=== PATIENT | female | born 1955 | race Caucasian/White ===

== ENCOUNTER 2019-07-31 13:43 | Outpatient (CLI) | payer MEDICARE, BC ==
[2019-07-31 14:03] LABS: BASOPHILS # (AUTO) 0.1 10^3/uL (0.0-0.1); BASOPHILS % (AUTO) 0.6 %; EOSINOPHILS # (AUTO) 0.5 10^3/uL (0.0-0.7); EOSINOPHILS % (AUTO) 5.9 %; HGB - HEMOGLOBIN 13.4 g/dL (12.0-16.0); LYMPHOCYTES # (AUTO) 2.9 10^3/uL (1.5-3.5); LYMPHOCYTES % (AUTO) 36.4 %; MEAN CORPUSCULAR HEMOGLOBIN 32.1 pg (27.0-31.0); MEAN CORPUSCULAR HGB CONC 33.8 g/dL (32.0-36.0); MEAN CORPUSCULAR VOLUME 94.7 fL (81.0-99.0); MEAN PLATELET VOLUME 9.4 fL (7.9-10.8); MONOCYTES # (AUTO) 0.4 10^3/uL (0.0-1.0); MONOCYTES % (AUTO) 4.6 %; NEUTROPHILS # (AUTO) 4.2 10^3/uL (1.5-6.6); NEUTROPHILS % (AUTO) 52.1 %; PLT - PLATELET COUNT 279 10^3/uL (130-450); RED BLOOD COUNT 4.18 10^6/uL (4.20-5.40); RED CELL DISTRIBUTION WIDTH 13.6 % (12.0-15.0)
[2019-07-31 14:17] LABS: ALBUMIN 4.6 g/dL (3.2-5.5); ALBUMIN/GLOBULIN RATIO 1.6 (1.0-2.2); ALKALINE PHOSPHATASE 58 IU/L (42-121); ALT ALANINE AMINOTRANSFERASE 25 IU/L (10-60); AST ASPARTATE AMINOTRANSFERASE 24 IU/L (10-42); BILIRUBIN,TOTAL 0.7 mg/dL (0.2-1.0); BUN - BLOOD UREA NITROGEN 12 mg/dL (6-20); CALCIUM 9.2 mg/dL (8.5-10.3); CARBON DIOXIDE - CO2 26 mmol/L (21-32); CHLORIDE 104 mmol/L (101-111); CHOL/HDL RATIO 2.7 (<4.4); CHOLESTEROL 192 mg/dL; CREATININE 0.6 mg/dL (0.4-1.0); GFR - MDRD 100 (>89); GLUCOSE 92 mg/dL (70-100); HDL CHOLESTEROL 72 mg/dL; LDL CHOLESTEROL,CALCULATED 108 mg/dL; LDL/HDL RATIO 1.5 (<4.4); SODIUM 141 mmol/L (135-145); TOTAL PROTEIN 7.5 g/dL (6.7-8.2); VLDL CHOLESTEROL 12 mg/dL
[2019-07-31 14:44] LABS: HB2 TOTAL 14.1 g/dL; HEMOGLOBIN A1C 0.58 g/dL; HEMOGLOBIN A1C % 5.9 % (4.6-6.2)
== END 2019-07-31 13:44 | disposition home or self-care (01) ==
LOC: LAB 13:43
PROVIDERS: ATTEND Nurse Practitioner
DX: M85.80 Other specified disorders of bone density and structure, unspecified site (principal); I10 Essential (primary) hypertension; R73.01 Impaired fasting glucose; E03.9 Hypothyroidism, unspecified; Z13.220 Encounter for screening for lipoid disorders; Z79.899 Other long term (current) drug therapy
CPT/HCPCS: 36415; 80053; 80061; 82306; 83036; 83721; 84443; 85025

== ENCOUNTER 2019-07-31 13:58 | Outpatient (CLI) | payer MEDICARE, BC ==
--- NOTE | 2019-08-07 11:30 | DEXA Report ---
Reason: OSTEOPENIA Procedure Date: 07/31/2019 Accession Number: [id number] / [id number] Procedure: DEX - Dexa Spine and/or Hip CPT Code: Final Report FULL RESULT: EXAM: Dexa Spine and/or Hip DATE: 07/31/2019 3:47 PM CLINICAL HISTORY: OSTEOPENIA TECHNIQUE: Dual energy x-ray absorptiometry (DXA) was performed on a [employer] System. Regions measured are the AP Spine, femoral neck, and if needed forearm. COMPARISON: None. In accordance with the International Society for Clinical Densitometry (ISCD) guidelines, data from previous exams may be reanalyzed using current recommendations and techniques. This is done to allow a more accurate basis for comparison with the current study. FINDINGS: The data for the lumbar spine is as follows: BMD (g/cm/cm) T-SCORE Z-SCORE REGION L1 1.003 -1.1 0.6 L2 1.129 -0.6 1.0 L3 1.236 0.3 1.9 L4 1.242 0.4 2.0 TOTAL 1.162 -0.1 1.5 NOTE: All evaluable vertebrae are used for classification The data for the hip is as follows: BMD (g/cm/cm) T-SCORE Z-SCORE REGION Neck 0.950 -0.6 0.9 TOTAL 0.877 -1.0 0.2 NOTE: The femoral neck or total proximal femur, whichever is lowest, is used for classification. IMPRESSION: THE WHO CLASSIFICATION BASED ON THE INTERNATIONAL REFERENCE STANDARD IS NORMAL. THE FRACTURE RISK IS NOT INCREASED. RECOMMENDATION: Patients with diagnosis of osteoporosis or osteopenia should have regular bone mineral density assessment. For those eligible for Medicare, routine testing is allowed once every 2 years. Testing frequency can be increased for patients who have rapidly progressing disease or for those who are receiving medical therapy to restore bone mass. COMMENT: World Health Organization (WHO) definitions for osteoporosis and osteopenia: NORMAL BMD: T-score at -1.0 or higher, fracture risk is low OSTEOPENIA BMD: T-score between -1.0 and -2.5, fracture risk is increased. OSTEOPOROSIS BMD: T-score at -2.5 or lower, fracture risk is high. National Osteoporosis Foundation recommends: 1. Obtain adequate dietary calcium (at least 1200 mg per day) and vitamin D (400-800 international units per day). 2. Participate, as appropriate, in regular weightbearing and muscle-strengthening exercise. 3. Avoid tobacco use and reduce alcohol and caffeine intake. 4. For more detailed information see the website at www.NOF.org.
== END 2019-07-31 13:59 | disposition home or self-care (01) ==
LOC: DI 13:58
PROVIDERS: ATTEND Nurse Practitioner
DX: M85.80 Other specified disorders of bone density and structure, unspecified site (principal); I10 Essential (primary) hypertension; E03.9 Hypothyroidism, unspecified; Z13.220 Encounter for screening for lipoid disorders; Z79.899 Other long term (current) drug therapy; R73.01 Impaired fasting glucose
CPT/HCPCS: 36415; 77080; 80053; 80061; 82306; 83036; 84443; 85025

== ENCOUNTER 2019-07-31 14:03 | Outpatient (CLI) | payer MEDICARE, BC ==
--- NOTE | 2019-08-07 17:00 | Mammography Report ---
Reason: SCREENING MAMMO Procedure Date: 07/31/2019 Accession Number: [id number] / [id number] Procedure: LINDSEY - Screening Mammo w/Yoandy CPT Code: Final Report FULL RESULT: EXAM: Screening Mammo w/Yoandy DATE: 07/31/2019 2:56 PM CLINICAL HISTORY: Screening encounter. Family history of breast cancer in the mother at the age of 50 and a sister at the age of 55. TECHNIQUE: (B) - Bilateral CC and MLO views were obtained. Left laterally exaggerated CC view is obtained. COMPARISON: None PARENCHYMAL PATTERN: (D) - The breast(s) demonstrate(s) heterogeneously dense fibroglandular parenchyma. FINDINGS: There are no suspicious masses, calcifications, or areas of distortion. IMPRESSION: Negative examination. BI-RADS category 1. RECOMMENDATION: (ANNUAL) - Recommend routine annual screening mammography. BI-RADS CATEGORY: (1) - Negative. STANDARD QUALIFYING STATEMENTS: 1. This examination was not reviewed with the aid of Computer-Aided Detection (CAD). 2. A negative or benign imaging report should not preclude biopsy if clinically suspicious findings are present. 3. Dense breasts may obscure an underlying neoplasm. 4. This examination was reviewed with the aid of 3D breast imaging (tomosynthesis).
== END 2019-07-31 14:04 | disposition home or self-care (01) ==
LOC: DI 14:03
PROVIDERS: ATTEND Nurse Practitioner
DX: Z12.31 Encounter for screening mammogram for malignant neoplasm of breast (principal); Z80.3 Family history of malignant neoplasm of breast
CPT/HCPCS: 77063; 77067

== ENCOUNTER 2019-11-02 19:04 | Emergency (ER) | payer MEDICARE, BC ==
[2019-11-02 19:39] LABS: BILIRUBIN,URINE NEGATIVE (NEGATIVE); CLARITY,URINE CLEAR (CLEAR); GLUCOSE, URINE (UA) NEGATIVE (NEGATIVE); KETONES,URINE (UA) NEGATIVE (NEGATIVE); LEUKOCYTE ESTERASE, URINE SMALL (NEGATIVE); NITRITE,URINE POSITIVE (NEGATIVE); OCCULT BLOOD,URINE NEGATIVE (NEGATIVE); PROTEIN,URINE NEGATIVE (NEGATIVE); UROBILINOGEN,URINE 0.2 (NORMAL) E.U./dL (NORMAL)
[2019-11-02 19:48] LABS: BACTERIA,URINE Many /HPF (None Seen); RBC,URINE None Seen /HPF (0-5); SQUAMOUS EPITHELIAL CELL,UR NONE SEEN (<= Few); WBC CLUMPS,URINE PRESENT
[2019-11-02] MEDS ORDERED: NITROFURANTOIN MACRO 100 MG CAPSULE PO STA (19:50)
[2019-11-02] MEDS ORDERED: PHENAZOPYRIDINE 100 MG TABLET PO STA (19:50)
--- NOTE | 2019-11-02 19:51 | ED Physician Documentation ---
History of Present Illness - Stated complaint Stated Complaint: FEM - Chief complaint Chief Complaint: UTI - History obtained from History obtained from: Patient - History of Present Illness Timing: How many days ago (3) Pain level max: 4 Pain level now: 3 - Additonal information Additional information: Patient with UTI symptoms. Dysuria and frequency. no hematuria. no fever. no abd pain. Review of Systems Constitutional: denies: Fever, Chills GI: denies: Vomiting, Diarrhea : reports: Dysuria, Frequency, Hesitancy Skin: denies: Rash Musculoskeletal: denies: Neck pain Neurologic: denies: Headache PD PAST MEDICAL HISTORY - Past Medical History Past Medical History: No - Present Medications Home Medications: Ambulatory Orders Medication Instructions Recorded Confirmed Nitrofurantoin Monohyd/M-Cryst 100 mg PO BID #10 capsule 11/02/19 [Macrobid 100 mg Capsule] - Allergies Allergies/Adverse Reactions: Allergies Allergy/AdvReac Type Severity Reaction Status Date / Time hydrochlorothiazide Allergy Anaphylaxis Verified 11/02/19 19:15 - Social History Does the pt smoke?: No Smoking Status: Never smoker Does the pt drink ETOH?: No Does the pt have substance abuse?: No - Immunizations Immunizations are current?: Yes PD ED PE NORMAL - Vitals Vital signs reviewed: Yes - General General: Alert and oriented X 3, No acute distress, Well developed/nourished - HEENT HEENT: Moist mucous membranes - Neck Neck: Supple, no meningeal sign - Abdomen Abdomen: Soft, Non tender, Non distended - Back Back: No CVA TTP - Derm Derm: Warm and dry - Neuro Neuro: Alert and oriented X 3 - Psych Psych: Normal mood, Normal affect Results - Vitals Vitals: Vital Signs - 24 hr 11/02/19 11/02/19 19:15 20:10 Temperature 36.6 C 36.7 C Heart Rate 74 75 Respiratory 16 18 Rate Blood Pressure 146/80 H 137/81 H O2 Saturation 99 99 Oxygen O2 Source Room air - Labs Labs: Laboratory Tests 11/02/19 19:31 Urine Color YELLOW Urine Clarity CLEAR Urine pH 6.0 Ur Specific [place] 1.015 Urine Protein NEGATIVE Urine Glucose (UA) NEGATIVE Urine Ketones NEGATIVE Urine Occult Blood NEGATIVE Urine Nitrite POSITIVE H Urine Bilirubin NEGATIVE Urine Urobilinogen 0.2 (NORMAL) Ur Leukocyte Esterase SMALL H Urine RBC None Seen Urine WBC >25 H Urine WBC Clumps PRESENT Ur Squamous Epith Cells NONE SEEN Urine Bacteria Many H Ur Microscopic Review INDICATED Urine Culture Comments INDICATED PD MEDICAL DECISION MAKING - ED course Complexity details: reviewed results, considered differential, d/w patient ED course: Patient with a UTI. Will place on antibiotics for home. She is well-appearing, nontoxic. Afebrile. No evidence of pyelonephritis. Patient counseled regardi ng signs and symptoms for which I believe and urgent re-evaluation would be necessary. Patient with good understanding of and agreement to plan and is comfortable going home at this time This document was made in part using voice recognition software. While efforts are made to proofread this document, sound alike and grammatical errors may occur. Departure - Departure Disposition: Home, Self Care Clinical Impression: Urinary tract infection Qualifiers: Urinary tract infection type: acute cystitis Hematuria presence: without hematuria Qualified Code(s): N30.00 - Acute cystitis without hematuria Condition: Good Instructions: ED UTI Cystitis Female Follow-Up: Samia De La O ARNP, SYSTEM DEVELOPMENT ENGINEER-C [Primary Care Provider] - Within 1 week Prescriptions: Nitrofurantoin Monohyd/M-Cryst [Macrobid 100 mg Capsule] 100 mg PO BID #10 capsule Comments: Take all antibiotics until gone. Return if you worsen. Discharge Date/Time: 11/02/19 20:11
[2019-11-02 20:11] VITALS: BP 137/81
== END 2019-11-02 20:11 | disposition home or self-care (01) ==
LOC: ED 19:04
DX: N30.00 Acute cystitis without hematuria (principal)
CPT/HCPCS: 81001; 87077; 87086; 87181; 99283; 99284; A9270; 81003

== ENCOUNTER 2019-11-12 13:05 | Outpatient (CLI) | payer MEDICARE, BC ==
[2019-11-12 18:02] LABS: BASOPHILS # (AUTO) 0.1 10^3/uL (0.0-0.1); BASOPHILS % (AUTO) 0.7 %; EOSINOPHILS % (AUTO) 0.1 %; HGB - HEMOGLOBIN 11.3 g/dL (12.0-16.0); LYMPHOCYTES # (AUTO) 2.7 10^3/uL (1.5-3.5); LYMPHOCYTES % (AUTO) 35.8 %; MEAN CORPUSCULAR HEMOGLOBIN 30.2 pg (27.0-31.0); MEAN CORPUSCULAR HGB CONC 31.8 g/dL (32.0-36.0); MEAN CORPUSCULAR VOLUME 94.9 fL (81.0-99.0); MEAN PLATELET VOLUME 9.6 fL (7.9-10.8); MONOCYTES # (AUTO) 0.4 10^3/uL (0.0-1.0); MONOCYTES % (AUTO) 5.4 %; NEUTROPHILS # (AUTO) 4.4 10^3/uL (1.5-6.6); NEUTROPHILS % (AUTO) 57.6 %; PLT - PLATELET COUNT 321 10^3/uL (130-450); RED BLOOD COUNT 3.74 10^6/uL (4.20-5.40); RED CELL DISTRIBUTION WIDTH 13.3 % (12.0-15.0); WHITE BLOOD COUNT 7.6 x10^3/uL (4.8-10.8)
[2019-11-12 18:18] LABS: ALBUMIN/GLOBULIN RATIO 1.5 (1.0-2.2); BILIRUBIN,TOTAL 0.6 mg/dL (0.2-1.0); CALCIUM 8.9 mg/dL (8.5-10.3); CREATININE 0.6 mg/dL (0.4-1.0); TOTAL PROTEIN 6.7 g/dL (6.7-8.2)
== END 2019-11-12 23:59 | disposition home or self-care (01) ==
LOC: LAB.WCP 13:05
PROVIDERS: ATTEND Nurse Practitioner
DX: R10.9 Unspecified abdominal pain (principal); N39.0 Urinary tract infection, site not specified
CPT/HCPCS: 36415; 80053; 85025; 87086

== ENCOUNTER 2020-07-28 14:15 | Outpatient (CLI) | payer MEDICARE, BC ==
--- NOTE | 2020-07-29 12:29 | Mammography Report ---
BILATERAL DIGITAL SCREENING MAMMOGRAM 3D/2D: 07/28/2020 CLINICAL: Family history of breast cancer. Routine screening. Comparison is made to exams dated: 07/31/2019 mammogram, 07/23/2013 mammogram, 07/25/2012 mammogram, 07/04 mammogram, 07/19/2010 mammogram, and 07/13/2009 mammogram - [facility]. The ti ssue of both breasts is heterogeneously dense. This may lower the sensitivity of mammography. No significant masses, calcifications, or other findings are seen in either breast. There has been no significant interval change. IMPRESSION: NEGATIVE There is no mammographic evidence of malignancy. A 1 year screening mammogram is recommended. This exam was interpreted at Station ID: [id number]. NOTE: For mammograms, a report in lay terms will be sent to the patient. Approximately 15% of breast malignancies will not be visualized mammographically. In the management of a palpable breast mass, a negative mammogram must not discourage biopsy of a clinically suspicious lesion. Electronically Signed By: Ashli chatterjee/joni:07/28/2020 17:28:34 ACR BI-RADS Category 1: Negative 3341F PARENCHYMAL PATTERN: (D) - The breast(s) demonstrate(s) heterogeneously dense fibroglandular bella rosas. BI-RADS CATEGORY: (1) - 1 RECOMMENDATION: (ANNUAL) - Recommend routine annual screening mammography. [id number] 1 year screening LATERALITY: (B)
== END 2020-07-28 14:16 | disposition home or self-care (01) ==
LOC: DI.N 14:15
DX: Z12.31 Encounter for screening mammogram for malignant neoplasm of breast (principal); Z80.3 Family history of malignant neoplasm of breast

== ENCOUNTER 2020-08-07 11:00 | Outpatient (CLI) | payer MEDICARE, BC | END 2020-08-07 23:59 | disposition home or self-care (01) | LOC: LAB.R 11:00 | PROVIDERS: ATTEND Physician Assistant Medical | DX: N39.0 Urinary tract infection, site not specified (principal) | CPT/HCPCS: 87077; 87086; 87181 ==

== ENCOUNTER 2021-02-01 07:04 | Outpatient (CLI) | payer MEDICARE, BC ==
--- NOTE | 2021-02-01 08:16 | CT Report ---
PROCEDURE: Low Dose Lung Cancer Screen INDICATIONS: NICOTINE DEPENDENCE TECHNIQUE: Noncontrast low-dose images were acquired from the pulmonary apices to the posterior costophrenic ang les. Multiplanar MIP reformats were then acquired. For radiation dose reduction, the following was used: automated exposure control, adjustment of mA and/or kV according to patient size. COMPARISON: None. FINDINGS: Image quality: Excellent. Lungs and pleura: 5 mm solid nodule seen in lateral left apex series 4 image 45. 4 mm solid nodule in posterior lateral right apex series 4 image 47. 2 mm solid nodule lateral right apex series 4 image 51. 2 mm solid nodule posterior medial left apex series 4 image 64. 2 and 3 mm subsolid nodules in lateral right upper lobe series 4 image 68. 3 mm solid nodule lateral right upper lobe series 4 image 77. 2 mm solid nodule lateral right upper lobe series 4 image 77 2 mm solid nodule anterolateral right upper lobe series 4 image 85 1 and 2 mm solid nodules in lateral right upper lobe series 4 image 95. 3 mm solid nodule in posterior right lower lobe series 4 image 111. 3 mm solid nodule in left lingular segment near left lung base series 4 image 255. Biapical scarring is seen. Scattered atelectasis in periphery of bilateral mid to lower lung rmasay a lso seen. No pleural effusion or pneumothorax. Central and peripheral airway is patent. Mediastinum: Heart size is normal. No pericardial effusion. No mediastinal adenopathy by size crit eria. Mild atherosclerotic calcifications are noted in coronary vessels and thoracic aorta. Thoracic aorta and central pulmonary arteries are normal in size. Esophagus is normal in caliber. No hiatal hernia. Bones and chest wall: No suspicious bony lesions. No vertebral body compression fractures. No axil maggie or supraclavicular adenopathy by size criteria. The thyroid is normal in size and there are no incidental findings. Abdomen: Visualized upper abdomen solid organs and bowel loops appear normal in the absence of contr ast. IMPRESSION: 1. Numerous tiny solid nodules scattered in bilateral lung ramsay as described above predominantly in volving right upper lobe and measures up to 5 mm in size. 2. Mild atherosclerotic calcifications in coronary vessels. Lung RADS category: 2, benign findings. Low-dose screening CT chest follow-up in 12 months is recomme nded. CLINICAL RECOMMENDATION STATEMENTS: In patients <35 years with an ITN detected on CT, MRI, or extrathyroidal ultrasound, the Committee re commends further evaluation with dedicated thyroid ultrasound if the nodule is ?1 cm and has no suspi cious imaging features, and if the patient has normal life expectancy. In patients ?35 years with an ITN detected on CT, MRI, or extrathyroidal ultrasound, the Committee re commends further evaluation with dedicated thyroid ultrasound if the nodule is ?1.5 cm and has no kory picious imaging features, and if the patient has normal life expectancy. (ACR, 2014) Reviewed by: Skyler Savage MD on 02/01/2021 8:15 AM PDT Approved by: Skyler Savage MD on 02/01/2021 8:15 AM PDT Station ID: [id number]
== END 2021-02-01 07:05 | disposition home or self-care (01) ==
LOC: DI 07:04
PROVIDERS: ATTEND Family Medicine
DX: Z12.2 Encounter for screening for malignant neoplasm of respiratory organs (principal); R91.8 Other nonspecific abnormal finding of lung field; I25.10 Atherosclerotic heart disease of native coronary artery without angina pectoris; F17.210 Nicotine dependence, cigarettes, uncomplicated

== ENCOUNTER 2021-02-15 08:00 | Outpatient (CLI) | payer MEDICARE, BC ==
[2021-02-15 12:12] LABS: BASOPHILS % (AUTO) 0.4 %; HCT - HEMATOCRIT 37.4 % (37.0-47.0); HGB - HEMOGLOBIN 11.9 g/dL (12.0-16.0); LYMPHOCYTES # (AUTO) 2.2 10^3/uL (1.5-3.5); LYMPHOCYTES % (AUTO) 28.7 %; MEAN CORPUSCULAR HEMOGLOBIN 30.6 pg (27.0-31.0); MEAN CORPUSCULAR HGB CONC 31.8 g/dL (32.0-36.0); MEAN CORPUSCULAR VOLUME 96.1 fL (81.0-99.0); MEAN PLATELET VOLUME 9.8 fL (7.9-10.8); MONOCYTES # (AUTO) 0.5 10^3/uL (0.0-1.0); MONOCYTES % (AUTO) 6.1 %; NEUTROPHILS # (AUTO) 4.8 10^3/uL (1.5-6.6); NEUTROPHILS % (AUTO) 64.4 %; PLT - PLATELET COUNT 274 10^3/uL (130-450); RED BLOOD COUNT 3.89 10^6/uL (4.20-5.40); RED CELL DISTRIBUTION WIDTH 14.4 % (12.0-15.0); WHITE BLOOD COUNT 7.5 x10^3/uL (4.8-10.8)
[2021-02-15 12:20] LABS: ESTIMATED AVERAGE GLUCOSE 111 mg/dL (70-100); HEMOGLOBIN A1c% 5.5 % (4.27-6.07)
[2021-02-15 12:23] LABS: THYROID STIMULATING HORMONE 1.46 uIU/mL (0.34-5.60)
[2021-02-15 12:34] LABS: ALBUMIN/GLOBULIN RATIO 1.7 (1.0-2.2); ALKALINE PHOSPHATASE 55 IU/L (42-121); ALT ALANINE AMINOTRANSFERASE 23 IU/L (10-60); AST ASPARTATE AMINOTRANSFERASE 17 IU/L (10-42); BILIRUBIN,TOTAL 0.6 mg/dL (0.2-1.0); BUN - BLOOD UREA NITROGEN 13 mg/dL (6-20); CALCIUM 9.5 mg/dL (8.5-10.3); CARBON DIOXIDE - CO2 28 mmol/L (21-32); CHLORIDE 105 mmol/L (101-111); CHOL/HDL RATIO 2.3 (<4.4); CHOLESTEROL 189 mg/dL; CREATININE 0.7 mg/dL (0.4-1.0); GFR - MDRD 83 (>89); GLUCOSE 101 mg/dL (70-100); HDL CHOLESTEROL 82 mg/dL; LDL CHOLESTEROL,CALCULATED 97 mg/dL; LDL/HDL RATIO 1.2 (<4.4); POTASSIUM 4.4 mmol/L (3.5-5.0); SODIUM 140 mmol/L (135-145); TOTAL PROTEIN 6.3 g/dL (6.7-8.2); TRIGLYCERIDES 49 mg/dL; VLDL CHOLESTEROL 10 mg/dL
== END 2021-02-15 23:59 | disposition home or self-care (01) ==
LOC: LAB.WCP 08:00
PROVIDERS: ATTEND Family Medicine
DX: G47.00 Insomnia, unspecified (principal); D64.9 Anemia, unspecified; R73.01 Impaired fasting glucose; Z79.899 Other long term (current) drug therapy; I10 Essential (primary) hypertension; Z13.220 Encounter for screening for lipoid disorders; E03.9 Hypothyroidism, unspecified; M85.80 Other specified disorders of bone density and structure, unspecified site
CPT/HCPCS: 36415; 80053; 80061; 82306; 83036; 83721; 84443; 85025

== ENCOUNTER 2021-02-19 10:33 | Outpatient (CLI) | payer MEDICARE, BC | END 2021-02-19 23:59 | disposition home or self-care (01) | LOC: LAB.N 10:33 | PROVIDERS: ATTEND Physician Assistant Medical | DX: R39.9 Unspecified symptoms and signs involving the genitourinary system (principal) | CPT/HCPCS: 87086 ==

== ENCOUNTER 2021-06-07 08:00 | Outpatient (CLI) | payer MEDICARE, BC ==
[2021-06-09 11:26] LABS: HSV 1 IGG TYPE SPECIFIC AB <0.90 index
== END 2021-06-07 23:59 ==
LOC: LAB.N 08:00
PROVIDERS: ATTEND Nurse Practitioner
DX: R21 Rash and other nonspecific skin eruption (principal)
CPT/HCPCS: 81599; 86695; 86696; 87070; 87205

== ENCOUNTER 2021-06-14 08:37 | Outpatient (CLI) | payer MEDICARE, BC ==
[2021-06-16 11:31] LABS: HSV 1 IGG TYPE SPECIFIC AB <0.90 index
== END 2021-06-14 08:38 | disposition home or self-care (01) ==
LOC: LAB.N 08:37
PROVIDERS: ATTEND Family Medicine
DX: R21 Rash and other nonspecific skin eruption (principal)
CPT/HCPCS: 36415; 81599; 86695; 86696

== ENCOUNTER 2021-07-30 08:36 | Outpatient (CLI) | payer MEDICARE, BC ==
--- NOTE | 2021-07-30 10:49 | DEXA Report ---
PROCEDURE: Dexa Spine and/or Hip INDICATIONS: OSTEOPOROSIS SCREENING, POST MENOPAUSAL TECHNIQUE: Dual energy x-ray absorptiometry (DXA) was performed on a [employer] System. Regions measur ed are the AP Spine, femoral neck, and if needed forearm. COMPARISON: 07/31/2019 FINDINGS: Bone mineral density in the spine and right femoral neck are normal, with T scores of -0.8 and -1.1, respectively. In the right total hip, the measured bone mineral density is 0.63, which has a T score of -1.1 which is mildly osteopenic (cut off at -1.0). Impression: Mild osteopenia solely on the basis of the right total hip bone mineral density. Normal bone mineral density in the spine and right femoral neck. Bone mineral density has not significantly changed from the prior study. Patients with diagnosis of osteoporosis or osteopenia should have regular bone mineral density assess ment. For those eligible for Medicare, routine testing is allowed once every 2 years. Testing frequ ency can be increased for patients who have rapidly progressing disease or for those who are receivin g medical therapy to restore bone mass. Reviewed by: Bay Zelaya MD on 07/30/2021 10:48 AM PST Approved by: Bay Zelaya MD on 07/30/2021 10:48 AM PST Station ID: [id number]
== END 2021-07-30 08:37 | disposition home or self-care (01) ==
LOC: DI 08:36
PROVIDERS: ATTEND Family Medicine
DX: Z13.820 Encounter for screening for osteoporosis (principal); Z78.0 Asymptomatic menopausal state; M85.88 Other specified disorders of bone density and structure, other site

== ENCOUNTER 2021-08-18 15:16 | Outpatient (CLI) | payer MEDICARE, BC ==
--- NOTE | 2021-08-19 11:37 | Mammography Report ---
BILATERAL DIGITAL SCREENING MAMMOGRAM 3D/2D: 08/18/2021 CLINICAL: Family history of breast cancer. Routine screening. Comparison is made to exams dated: 07/28/2020 mammogram and 07/31/2019 mammogram - [facility]. The tissue of both breasts is heterogeneously dense. This may lower the sensitivity of bill mography. No significant masses, calcifications, or other findings are seen in either breast. There has been no significant interval change. IMPRESSION: NEGATIVE There is no mammographic evidence of malignancy. A 1 year screening mammogram is recommended. This exam was interpreted at Station ID: [id number]. NOTE: For mammograms, a report in lay terms will be sent to the patient. Approximately 15% of breast malignancies will not be visualized mammographically. In the management of a palpable breast mass, a negative mammogram must not discourage biopsy of a clinically suspicious lesion. Electronically Signed By: Ashli chatterjee/joni:08/19/2021 10:53:13 ACR BI-RADS Category 1: Negative 3341F PARENCHYMAL PATTERN: (D) - The breast(s) demonstrate(s) heterogeneously dense fibroglandular bella rosas. BI-RADS CATEGORY: (1) - 1 RECOMMENDATION: (ANNUAL) - Recommend routine annual screening mammography. [id number] 1 year screening LATERALITY: (B)
== END 2021-08-18 15:17 | disposition home or self-care (01) ==
LOC: DI.N 15:16
PROVIDERS: ATTEND Family Medicine
DX: Z12.31 Encounter for screening mammogram for malignant neoplasm of breast (principal); Z80.3 Family history of malignant neoplasm of breast

== ENCOUNTER 2021-08-21 15:10 | Outpatient (CLI) | payer MEDICARE, BC | END 2021-08-21 23:59 | disposition home or self-care (01) | LOC: LAB.N 15:10 | PROVIDERS: ATTEND Family Medicine | DX: R30.0 Dysuria (principal) | CPT/HCPCS: 87086 ==

== ENCOUNTER 2021-10-04 08:19 | Outpatient (CLI) | payer MEDICARE, BC | END 2021-10-04 08:20 | disposition home or self-care (01) | LOC: LAB.N 08:19 | PROVIDERS: ATTEND Urology | DX: R39.15 Urgency of urination (principal) | CPT/HCPCS: 87086 ==

== ENCOUNTER 2021-12-01 07:07 | Outpatient (CLI) | payer MEDICARE, BC ==
[2021-12-01 11:43] LABS: BASOPHILS # (AUTO) 0.1 10^3/uL (0.0-0.1); BASOPHILS % (AUTO) 0.7 %; EOSINOPHILS # (AUTO) 0.1 10^3/uL (0.0-0.7); EOSINOPHILS % (AUTO) 1.2 %; HCT - HEMATOCRIT 41.8 % (37.0-47.0); HGB - HEMOGLOBIN 13.9 g/dL (12.0-16.0); LYMPHOCYTES # (AUTO) 2.2 10^3/uL (1.5-3.5); LYMPHOCYTES % (AUTO) 29.4 %; MEAN CORPUSCULAR HEMOGLOBIN 30.9 pg (27.0-31.0); MEAN CORPUSCULAR HGB CONC 33.3 g/dL (32.0-36.0); MEAN CORPUSCULAR VOLUME 92.9 fL (81.0-99.0); MEAN PLATELET VOLUME 10.4 fL (7.9-10.8); MONOCYTES # (AUTO) 0.4 10^3/uL (0.0-1.0); MONOCYTES % (AUTO) 4.9 %; NEUTROPHILS # (AUTO) 4.8 10^3/uL (1.5-6.6); NEUTROPHILS % (AUTO) 63.4 %; PLT - PLATELET COUNT 322 10^3/uL (130-450); RED CELL DISTRIBUTION WIDTH 13.5 % (12.0-15.0); WHITE BLOOD COUNT 7.6 x10^3/uL (4.8-10.8)
[2021-12-01 11:44] LABS: ALBUMIN 4.6 g/dL (3.2-5.5); ALBUMIN/GLOBULIN RATIO 1.8 (1.0-2.2); ALKALINE PHOSPHATASE 61 IU/L (42-121); ALT ALANINE AMINOTRANSFERASE 22 IU/L (10-60); AST ASPARTATE AMINOTRANSFERASE 22 IU/L (10-42); BILIRUBIN,TOTAL 0.6 mg/dL (0.2-1.0); BUN - BLOOD UREA NITROGEN 22 mg/dL (6-20); CALCIUM 9.6 mg/dL (8.5-10.3); CARBON DIOXIDE - CO2 29 mmol/L (21-32); CHLORIDE 100 mmol/L (101-111); CHOL/HDL RATIO 2.8 (<4.4); CHOLESTEROL 221 mg/dL; CREATININE 0.7 mg/dL (0.4-1.0); GFR - MDRD 83 (>89); GLUCOSE 113 mg/dL (70-100); HDL CHOLESTEROL 78 mg/dL; LDL CHOLESTEROL,CALCULATED 134 mg/dL; LDL/HDL RATIO 1.7 (<4.4); POTASSIUM 3.8 mmol/L (3.5-5.0); SODIUM 138 mmol/L (135-145); TOTAL PROTEIN 7.2 g/dL (6.7-8.2); TRIGLYCERIDES 45 mg/dL; VLDL CHOLESTEROL 9 mg/dL
[2021-12-01 11:55] LABS: THYROID STIMULATING HORMONE 0.48 uIU/mL (0.34-5.60)
== END 2021-12-01 07:08 | disposition home or self-care (01) ==
LOC: LAB.N 07:07
PROVIDERS: ATTEND Family Medicine
DX: M75.42 Impingement syndrome of left shoulder (principal); R32 Unspecified urinary incontinence; K52.831 Collagenous colitis; R73.01 Impaired fasting glucose; I10 Essential (primary) hypertension; E03.9 Hypothyroidism, unspecified
CPT/HCPCS: 36415; 80053; 80061; 83721; 84443; 85025

== ENCOUNTER 2022-02-14 15:02 | Outpatient (CLI) | payer MEDICARE, BC ==
--- NOTE | 2022-02-14 17:52 | CT Report ---
PROCEDURE: Low Dose Lung Cancer Screen INDICATIONS: SMOKER TECHNIQUE: Noncontrast low-dose axial images were acquired from the pulmonary apices to the posterior costophren ic angles. Multiplanar MIP reformats were then reconstructed. For radiation dose reduction, the follo wing was used: automated exposure control, adjustment of mA and/or kV according to patient size. COMPARISON: 02/01/2021. FINDINGS: Image quality: Excellent. Lungs and pleura: Multiple small pulmonary nodules are stable. 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 Fissural nodule, right major fissure, previously 3 x 9 mm on prior image 153/4 and currently 4 x 7 mm on current image 152/4. 2. Left apical nodule, 5 mm, previous image 45/4 and current image 40/4. 3. 4 mm right apical pleural-based nodule, likely scarring, previous image 47/4 and current image 44/ 4. Multiple other scattered tiny 3 mm or less pulmonary nodules are stable. No new or increasing pulmonary nodules. Mediastinum: Heart size is normal. No pericardial effusion. No mediastinal adenopathy by size crit eria. Thoracic aorta and central pulmonary arteries are normal in size. Esophagus is normal in shiv quang. No hiatal hernia. Bones and chest wall: No suspicious bony lesions. No vertebral body compression fractures. No axil maggie or supraclavicular adenopathy by size criteria. Thyroid is somewhat small. Abdomen: Visualized upper abdomen solid organs and bowel loops appear normal in the absence of contr ast. IMPRESSION: Lung Significant Findings: Multiple stable pulmonary nodules. Lung RAD: 2 - Benign Appearance or Behavior. Nodules with a very low likelihood of becoming a clinica lly active cancer due to size or lack of growth. Recommendation: 2 - Continue annual screening with LDCT in 12 months. CLINICAL RECOMMENDATION STATEMENTS: In patients <35 years with an ITN detected on CT, MRI, or extrathyroidal ultrasound, the Committee re commends further evaluation with dedicated thyroid ultrasound if the nodule is "e1 cm and has no susp icious imaging features, and if the patient has normal life expectancy. In patients "e35 years with an ITN detected on CT, MRI, or extrathyroidal ultrasound, the Committee r ecommends further evaluation with dedicated thyroid ultrasound if the nodule is "e1.5 cm and has no s uspicious imaging features, and if the patient has normal life expectancy. (ACR, 2014) Reviewed by: Osbaldo Mendoza MD on 02/14/2022 5:50 PM PDT Approved by: Osbaldo Mendoza MD on 02/14/2022 5:50 PM PDT Station ID: [id number] Lung-Rad Lung-Recommendation
== END 2022-02-14 15:03 | disposition home or self-care (01) ==
LOC: DI 15:02
PROVIDERS: ATTEND Family Medicine
DX: Z12.2 Encounter for screening for malignant neoplasm of respiratory organs (principal); F17.210 Nicotine dependence, cigarettes, uncomplicated; R91.8 Other nonspecific abnormal finding of lung field

== ENCOUNTER 2022-03-15 08:02 | Outpatient (CLI) | payer MEDICARE, BC ==
[2022-03-15 13:03] LABS: THYROID STIMULATING HORMONE 1.43 uIU/mL (0.34-5.60)
== END 2022-03-15 08:03 | disposition home or self-care (01) ==
LOC: LAB.N 08:02
PROVIDERS: ATTEND Family Medicine
DX: I10 Essential (primary) hypertension (principal); R73.01 Impaired fasting glucose; E03.9 Hypothyroidism, unspecified; K58.9 Irritable bowel syndrome, unspecified; F17.210 Nicotine dependence, cigarettes, uncomplicated
CPT/HCPCS: 36415; 84443

== ENCOUNTER 2022-06-03 07:08 | Outpatient (CLI) | payer MEDICARE, BC ==
[2022-06-03 12:41] LABS: BASOPHILS # (AUTO) 0.1 10^3/uL (0.0-0.1); BASOPHILS % (AUTO) 0.6 %; EOSINOPHILS # (AUTO) 0.1 10^3/uL (0.0-0.7); HCT - HEMATOCRIT 43.7 % (37.0-47.0); HGB - HEMOGLOBIN 14.2 g/dL (12.0-16.0); LYMPHOCYTES # (AUTO) 2.6 10^3/uL (1.5-3.5); LYMPHOCYTES % (AUTO) 25.9 %; MEAN CORPUSCULAR HEMOGLOBIN 30.5 pg (27.0-31.0); MEAN CORPUSCULAR HGB CONC 32.5 g/dL (32.0-36.0); MEAN PLATELET VOLUME 9.9 fL (7.9-10.8); MONOCYTES # (AUTO) 0.5 10^3/uL (0.0-1.0); MONOCYTES % (AUTO) 5.1 %; NEUTROPHILS # (AUTO) 6.7 10^3/uL (1.5-6.6); NEUTROPHILS % (AUTO) 66.9 %; PLT - PLATELET COUNT 391 10^3/uL (130-450); RED BLOOD COUNT 4.65 10^6/uL (4.20-5.40); RED CELL DISTRIBUTION WIDTH 13.8 % (12.0-15.0); WHITE BLOOD COUNT 9.9 x10^3/uL (4.8-10.8)
[2022-06-03 12:55] LABS: THYROID STIMULATING HORMONE 0.88 uIU/mL (0.34-5.60)
[2022-06-03 12:57] LABS: FREE T3 2.79 pg/mL (2.5-3.9); FREE T4 (FREE THYROXINE) 1.18 ng/dL (0.58-1.64)
[2022-06-03 13:01] LABS: ALBUMIN 4.5 g/dL (3.2-5.5); ALBUMIN/GLOBULIN RATIO 1.5 (1.0-2.2); ALKALINE PHOSPHATASE 66 IU/L (42-121); ALT ALANINE AMINOTRANSFERASE 23 IU/L (10-60); AST ASPARTATE AMINOTRANSFERASE 21 IU/L (10-42); BILIRUBIN,TOTAL 0.5 mg/dL (0.2-1.0); BUN - BLOOD UREA NITROGEN 15 mg/dL (6-20); CALCIUM 9.9 mg/dL (8.5-10.3); CARBON DIOXIDE - CO2 28 mmol/L (21-32); CHLORIDE 101 mmol/L (101-111); CHOL/HDL RATIO 3.1 (<4.4); CHOLESTEROL 229 mg/dL; CREATININE 0.8 mg/dL (0.4-1.0); GFR - MDRD 71 (>89); GLUCOSE 118 mg/dL (70-100); HDL CHOLESTEROL 75 mg/dL; LDL CHOLESTEROL,CALCULATED 140 mg/dL; LDL/HDL RATIO 1.9 (<4.4); POTASSIUM 4.2 mmol/L (3.5-5.0); SODIUM 139 mmol/L (135-145); TOTAL PROTEIN 7.6 g/dL (6.7-8.2); TRIGLYCERIDES 70 mg/dL; VLDL CHOLESTEROL 14 mg/dL
== END 2022-06-03 07:09 | disposition home or self-care (01) ==
LOC: LAB.N 07:08
PROVIDERS: ATTEND Family Medicine
DX: I10 Essential (primary) hypertension (principal); E03.9 Hypothyroidism, unspecified; K52.831 Collagenous colitis; F41.9 Anxiety disorder, unspecified; F32.A Depression, unspecified
CPT/HCPCS: 36415; 80053; 80061; 83721; 84439; 84443; 84481; 85025

== ENCOUNTER 2022-06-14 13:24 | Outpatient (CLI) | payer MEDICARE, BC | END 2022-06-14 13:25 | disposition home or self-care (01) | LOC: LAB.N 13:24 | PROVIDERS: ATTEND Urology | DX: R39.15 Urgency of urination (principal); N32.81 Overactive bladder; R35.1 Nocturia; R35.0 Frequency of micturition | CPT/HCPCS: 87086 ==

== ENCOUNTER 2022-12-08 08:54 | Outpatient (CLI) | payer MEDICARE, BC ==
--- NOTE | 2022-12-08 11:03 | Mammography Report ---
BILATERAL DIGITAL SCREENING MAMMOGRAM 3D/2D: 12/08/2022 CLINICAL: Routine screening. Comparison is made to exams dated: 08/18/2021 mammogram, 07/28/2020 mammogram, 07/31/2019 mammogram, 2013 mammogram, and 07/25/2012 mammogram - [facility]. Both breasts are heterogeneously dense, which may obscure small masses (category c / 51-75% glandular tissue). No significant masses, calcifications, or other findings are seen in either breast. There has been no significant interval change. IMPRESSION: NEGATIVE There is no mammographic evidence of malignancy. A 1 year screening mammogram is recommended. Based on Tyrer-Cuzick model (a risk assessment model), the patient's lifetime risk is 25.5% and her 1 0 year risk is 14.8%. If a patient has an elevated risk, a more comprehensive evaluation should be co nsidered and/or a referral to a genetic counselor. The [place] [employer], [employer], and NCCN Guidelines advise the consideration of Breast MRI as an adjunct to screening mammo graphy in patients whose "Lifetime risk to develop breast cancer" is 20% or higher. This exam was interpreted at Station ID: [id number]. NOTE: For mammograms, a report in lay terms will be sent to the patient. Approximately 15% of breast malignancies will not be visualized mammographically. In the management of a palpable breast mass, a negative mammogram must not discourage biopsy of a clinically suspicious lesion. Electronically Signed By: Padilla quesada/joni:12/08/2022 10:25:55 letter sent: No_Letter ACR BI-RADS Category 1: Negative 3341F PARENCHYMAL PATTERN: (D) - The breast(s) demonstrate(s) heterogeneously dense fibroglandular parenchy ma. BI-RADS CATEGORY: (1) - 1 Mammogram [id number] 1 year screening LATERALITY: (B)
== END 2022-12-08 08:55 | disposition home or self-care (01) ==
LOC: DI 08:54
DX: Z12.31 Encounter for screening mammogram for malignant neoplasm of breast (principal)

== ENCOUNTER 2022-12-18 09:18 | Outpatient (CLI) | payer MEDICARE, BC | END 2022-12-18 23:59 | disposition critical access hospital (66) | LOC: EMS 09:18 | DX: R42 Dizziness and giddiness (principal); R68.2 Dry mouth, unspecified; R53.81 Other malaise | CPT/HCPCS: A0425; A0429 ==

== ENCOUNTER 2022-12-18 09:32 | Emergency (ER) | payer MEDICARE, BC ==
--- NOTE | 2022-12-18 09:45 | ED Physician Documentation ---
History of Present Illness - Stated complaint Stated Complaint: SYNCOPE - Chief complaint Chief Complaint: Neuro - History obtained from History obtained from: Patient - Additonal information Additional information: The patient comes to the emergency department chief complaint of near syncopal episode while using the bathroom today. She is 5 days 4 days postop after a right hip replacement, and states that while she normally has issues with low blood pressure and lightheadedness, the symptoms have been worse since the surgery. She denies any shortness of breath, chest pain, or vomiting. She was mildly nauseated earlier but this is resolved. The patient states that she has not had any fevers or chills. She has had a lot of pain in the hip ever since the surgery but especially since she has been getting up and around. She has not started PT yet. Patient denies any direct trauma to the hip. She did not fall to the floor, but was able to sit down when she felt lightheaded. She did not lose consciousness at that time. The patient states the main thing that is bothering her right now is that she is cold and that she has pain in her hip. Medics report that when they picked the patient up, her systolic blood pressure was 91. However, with 500 cc of IV fluid, it did come up to 101. PD PAST MEDICAL HISTORY - Present Medications Home Medications: Ambulatory Orders Medication Instructions Recorded Confirmed Nitrofurantoin Monohyd/M-Cryst 100 mg PO BID #10 capsule 11/02/19 [Macrobid 100 mg Capsule] - Allergies Allergies/Adverse Reactions: Allergies Allergy/AdvReac Type Severity Reaction Status Date / Time hydrochlorothiazide Allergy Anaphylaxis Verified 12/18/22 09:39 - Social History Does the pt smoke?: No Smoking Status: Never smoker Does the pt drink ETOH?: No Does the pt have substance abuse?: No - Immunizations Immunizations are current?: Yes PD ED PE NORMAL - Vitals Vital signs reviewed: Yes - General General: Alert and oriented X 3, No acute distress, Well developed/nourished - HEENT HEENT: Atraumatic, PERRL, EOMI, Moist mucous membranes - Neck Neck: Supple, no meningeal sign - Cardiac Cardiac: RRR, No murmur - Respiratory Respiratory: No respiratory distress, Clear bilaterally - Abdomen Abdomen: Soft, Non tender, Non distended - Derm Derm: Warm and dry, Other (Widespread ecchymosis surrounding right hip incision site. Dressing is clean dry and intact. No erythema or induration.) - Extremities Extremities: No deformity, Other (Marked edema around the greater area of the right hip.) - Neuro Neuro: Alert and oriented X 3, No motor deficit, No sensory deficit, Other - Psych Psych: Normal mood, Normal affect Results - Vitals Vitals: Vital Signs - 24 hr 12/18/22 12/18/22 12/18/22 09:39 10:06 12:00 Temperature 36.3 C L Heart Rate 95 84 88 Respiratory 20 20 16 Rate Blood Pressure 88/70 L 118/48 L 118/52 L O2 Saturation 100 100 98 Oxygen O2 Source Room air - Labs Labs: Laboratory Tests 12/18/22 12/18/22 10:00 10:00 WBC 10.5 RBC 2.69 L Hgb 8.3 L Hct 25.2 L MCV 93.7 MCH 30.9 MCHC 32.9 RDW 13.6 Plt Count 316 MPV 9.2 Neut # (Auto) 8.4 H Lymph # (Auto) 1.1 L Howell # (Auto) 0.8 Eos # (Auto) 0.0 Baso # (Auto) 0.0 Absolute Nucleated RBC 0.00 Nucleated RBC % 0.0 Sodium 140 Potassium 3.7 Chloride 108 Carbon Dioxide 26 Anion Gap 6.0 BUN 9 Creatinine 0.8 Estimated GFR (MDRD) 71 L Glucose 126 H Calcium 7.8 L Total Bilirubin 0.8 AST 33 ALT 29 Alkaline Phosphatase 62 Total Protein 5.8 L Albumin 2.8 L Globulin 3.0 Albumin/Globulin Ratio 0.9 L Lipase 21 L PD Medical Decision Making - ED course Complexity details: reviewed results, re-evaluated patient, considered differential, d/w patient ED course: The patient was treated symptomatically with IV fluids. She had requested something for pain for her hip, but her blood pressure initially in the ED was 88 systolic and I explained to her that at this point in time, we cannot risk lowering her blood pressure further by giving her IV narcotics. I have given her an oral dose of oxycodone here in the ED. She is worked up with laboratory studies, EKG, and urinalysis, all of which were unremarkable. The patient was found to be feeling much better on reevaluation. Her blood pressure was normal, her color was good, and she was sitting up in bed smiling. I felt she was stable for discharge home. At this point in time, I do not find any evidence of infection of her surgical site. I have encouraged her to follow-up with her orthopedist as scheduled for her postoperative visit. We have discussed the usual indications for return. The patient's significant other is with her here. Departure - Departure Disposition: 01 Home, Self Care Clinical Impression: Syncope, near Condition: Stable Instructions: ED Near Syncope Vasovagal Comments: Your work-up does not show any concerning findings at this point in time, and you should continue your plans to follow-up with your orthopedist for reevaluation of your hip postoperatively. Please take your pain medication as needed. Be sure you are getting plenty of fluids to drink. Discharge Date/Time: 12/18/22 12:55
[2022-12-18] MEDS: SODIUM CHLORIDE 0.9% 1,000 ML IV STA (09:54)
[2022-12-18] MEDS: oxyCODONE 5 MG TABLET PO STA (09:54)
[2022-12-18 10:07] LABS: BASOPHILS % (AUTO) 0.4 %; EOSINOPHILS % (AUTO) 0.4 %; HCT - HEMATOCRIT 25.2 % (37.0-47.0); HGB - HEMOGLOBIN 8.3 g/dL (12.0-16.0); LYMPHOCYTES # (AUTO) 1.1 10^3/uL (1.5-3.5); LYMPHOCYTES % (AUTO) 10.3 %; MEAN CORPUSCULAR HEMOGLOBIN 30.9 pg (27.0-31.0); MEAN CORPUSCULAR HGB CONC 32.9 g/dL (32.0-36.0); MEAN CORPUSCULAR VOLUME 93.7 fL (81.0-99.0); MEAN PLATELET VOLUME 9.2 fL (7.9-10.8); MONOCYTES # (AUTO) 0.8 10^3/uL (0.0-1.0); MONOCYTES % (AUTO) 7.4 %; NEUTROPHILS # (AUTO) 8.4 10^3/uL (1.5-6.6); NEUTROPHILS % (AUTO) 80.6 %; PLT - PLATELET COUNT 316 10^3/uL (130-450); RED BLOOD COUNT 2.69 10^6/uL (4.20-5.40); RED CELL DISTRIBUTION WIDTH 13.6 % (12.0-15.0); WHITE BLOOD COUNT 10.5 x10^3/uL (4.8-10.8)
[2022-12-18 10:20] LABS: ALBUMIN 2.8 g/dL (3.2-5.5); ALBUMIN/GLOBULIN RATIO 0.9 (1.0-2.2); BILIRUBIN,TOTAL 0.8 mg/dL (0.2-1.0); CALCIUM 7.8 mg/dL (8.5-10.3); CREATININE 0.8 mg/dL (0.4-1.0); POTASSIUM 3.7 mmol/L (3.5-5.0); TOTAL PROTEIN 5.8 g/dL (6.7-8.2)
[2022-12-18 12:18] VITALS: BP 118/52
[2022-12-18] MEDS: HYDROmorphone 0.5 MG/0.5 ML SYRINGE IVP STA (12:42)
== END 2022-12-18 12:55 | disposition home or self-care (01) ==
LOC: EDUNIT# → ED 09:32
DX: R55 Syncope and collapse (principal)
CPT/HCPCS: 36415; 80053; 83690; 85025; 93005; 96374; 99283; A9270; J1170

== ENCOUNTER 2022-12-19 19:55 | Emergency (ER) | payer MEDICARE, BC ==
[2022-12-19] MEDS: SODIUM CHLORIDE 0.9% 1,000 ML IV STA (22:35)
[2022-12-19] MEDS: HYDROmorphone 1 MG/ML CARPUJECT IVP STA (22:46)
[2022-12-19] MEDS ORDERED: iohexoL-300 100 ML VIAL ONE (22:47)
[2022-12-19 22:49] LABS: BASOPHILS % (AUTO) 0.4 %; EOSINOPHILS # (AUTO) 0.1 10^3/uL (0.0-0.7); EOSINOPHILS % (AUTO) 1.5 %; HCT - HEMATOCRIT 22.9 % (37.0-47.0); HGB - HEMOGLOBIN 7.5 g/dL (12.0-16.0); LYMPHOCYTES # (AUTO) 1.7 10^3/uL (1.5-3.5); LYMPHOCYTES % (AUTO) 17.3 %; MEAN CORPUSCULAR HEMOGLOBIN 30.1 pg (27.0-31.0); MEAN CORPUSCULAR HGB CONC 32.8 g/dL (32.0-36.0); MEAN PLATELET VOLUME 9.1 fL (7.9-10.8); MONOCYTES # (AUTO) 0.9 10^3/uL (0.0-1.0); MONOCYTES % (AUTO) 9.5 %; NEUTROPHILS # (AUTO) 6.7 10^3/uL (1.5-6.6); NEUTROPHILS % (AUTO) 70.4 %; PLT - PLATELET COUNT 363 10^3/uL (130-450); RED BLOOD COUNT 2.49 10^6/uL (4.20-5.40); RED CELL DISTRIBUTION WIDTH 13.7 % (12.0-15.0); WHITE BLOOD COUNT 9.5 x10^3/uL (4.8-10.8)
[2022-12-19 22:57] LABS: ALBUMIN 2.8 g/dL (3.2-5.5); ALBUMIN/GLOBULIN RATIO 0.9 (1.0-2.2); BILIRUBIN,TOTAL 0.6 mg/dL (0.2-1.0); CALCIUM 8.1 mg/dL (8.5-10.3); CREATININE 0.8 mg/dL (0.4-1.0); POTASSIUM 3.2 mmol/L (3.5-5.0); TOTAL PROTEIN 5.9 g/dL (6.7-8.2)
[2022-12-19] MEDS: iohexoL-300 100 ML VIAL IVP ONE (23:29)
--- NOTE | 2022-12-20 00:55 | CT Report ---
PROCEDURE: LOWER EXTREMITY W - RT INDICATIONS: post-op hip replacement incr. swelling pain TECHNIQUE: After administration of contrast 3 mm axial sections acquired of the right hip, with coronal and sagi ttal reformats. For radiation dose reduction, the following was used: automated exposure control, a djustment of mA and/or kV according to patient size. CONTRAST: Omni 300 100ml COMPARISON: None. FINDINGS: Image quality: There is metallic streak artifact related to patient's hip prosthesis limiting evaluat ion. Bones: There is a right total hip prosthesis demonstrated. No fracture or dislocation. No suspicious periprosthetic lucencies. Soft tissues: There is edema within the anterior compartment of the proximal right thigh with hetero geneous fluid density likely representing an intramuscular hematoma. Evaluation is limited by adjacen t metallic streak artifact. Visualized pelvis demonstrates a small amount of presacral free fluid. IMPRESSION: 1. Heterogeneous soft tissue swelling and fluid density within anterior compartment of the proximal r ight thigh likely representing an intramuscular hematoma. The differential includes possible abscess secondary to infection and correlation is recommended clinically. Reviewed by: Cyrus Flores MD on 12/20/2022 12:54 AM PDT Approved by: Cyrus Flores MD on 12/20/2022 12:54 AM PDT Station ID: [id number]
--- NOTE | 2022-12-20 01:13 | ED Physician Documentation ---
History of Present Illness - Stated complaint Stated Complaint: R HIP PX, FEVER - Chief complaint Chief Complaint: Ext Problem - History obtained from History obtained from: Patient, Family - Additonal information Additional information: The patient returns to the emergency department chief complaint of right hip pain and thigh pain around her surgical site that just does not controlled with her home pain meds. She just had a hip replacement in the last week and was seen here yesterday for your syncopal episode. She had quite a bit of soft tissue swelling at that time but no evidence of soft tissue or wound infection. The patient states that she feels as though her leg is little more swollen today. She denies any fevers or chills. She is no longer feeling lightheaded. She has been taking 2-3 oxycodones every 4 hours and it is just not controlling the pain very well. No other complaints at this time. PD PAST MEDICAL HISTORY - Past Surgical History Past Surgical History: Yes Ortho: Knee replacement - Present Medications Home Medications: Ambulatory Orders Medication Instructions Recorded Confirmed Nitrofurantoin Monohyd/M-Cryst 100 mg PO BID #10 capsule 11/02/19 [Macrobid 100 mg Capsule] HYDROmorphone [Dilaudid] 2 mg PO Q4H PRN #15 tablet 12/20/22 - Allergies Allergies/Adverse Reactions: Allergies Allergy/AdvReac Type Severity Reaction Status Date / Time hydrochlorothiazide Allergy Anaphylaxis Verified 12/19/22 19:59 - Social History Does the pt smoke?: No Smoking Status: Never smoker Does the pt drink ETOH?: No Does the pt have substance abuse?: No - Immunizations Immunizations are current?: Yes PD ED PE NORMAL - Vitals Vital signs reviewed: Yes - General General: Alert and oriented X 3, No acute distress, Well developed/nourished - HEENT HEENT: Atraumatic, PERRL, EOMI, Moist mucous membranes - Neck Neck: Supple, no meningeal sign - Cardiac Cardiac: RRR, No murmur - Respiratory Respiratory: No respiratory distress, Clear bilaterally - Abdomen Abdomen: Soft, Non tender, Non distended - Derm Derm: Warm and dry, Other (Widespread, subacute/old contusion about the right hip. Incision is clean dry and intact.) - Extremities Extremities: No deformity, Other (Marked edema of right hip.) - Neuro Neuro: Alert and oriented X 3 - Psych Psych: Normal mood, Normal affect Results - Vitals Vitals: Vital Signs - 24 hr 12/19/22 12/19/22 12/20/22 19:59 23:20 01:23 Temperature 37.7 C Heart Rate 100 95 98 Respiratory 18 16 16 Rate Blood Pressure 123/60 120/62 122/63 O2 Saturation 96 98 99 Oxygen O2 Source Room air - Labs Labs: Laboratory Tests 12/19/22 12/19/22 22:26 22:26 WBC 9.5 RBC 2.49 L Hgb 7.5 L Hct 22.9 L MCV 92.0 MCH 30.1 MCHC 32.8 RDW 13.7 Plt Count 363 MPV 9.1 Neut # (Auto) 6.7 H Lymph # (Auto) 1.7 [place] # (Auto) 0.9 Eos # (Auto) 0.1 Baso # (Auto) 0.0 Absolute Nucleated RBC 0.00 Nucleated RBC % 0.0 Sodium 137 Potassium 3.2 L Chloride 103 Carbon Dioxide 25 Anion Gap 9.0 BUN 16 Creatinine 0.8 Estimated GFR (MDRD) 71 L Glucose 116 H Calcium 8.1 L Total Bilirubin 0.6 AST 40 ALT 36 Alkaline Phosphatase 60 Total Protein 5.9 L Albumin 2.8 L Globulin 3.1 Albumin/Globulin Ratio 0.9 L Lipase 25 - Rads (name of study) CT right hip Relevant Findings:: Final report received, See rad report (Heterogenous soft tissue swelling and fluid density within the anterior compartment of the proximal right thigh likely representing an ISK intramuscular hematoma. Differential includes possible abscess and correlation is recommended clinically) PD Medical Decision Making - ED course Complexity details: reviewed old records, reviewed results, re-evaluated patient, considered differential, d/w patient, d/w family ED course: The patient was worked up again with laboratory studies which continued to demonstrate a normal white blood cell count. She was sent for CT scan of her right hip, probable intramuscular hematoma. The patient had been treated symptomatically was feeling much better. I will adjust her pain medications for home. We have discussed the usual indications for return. Departure - Departure Disposition: 01 Home, Self Care Clinical Impression: Postoperative pain, Intramuscular hematoma Condition: Stable Instructions: ED Hematoma, ED Wound Check Post Op No Infec, ED Post Op Pain Prescriptions: HYDROmorphone [Dilaudid] 2 mg PO Q4H PRN #15 tablet PRN Reason: Pain 5-7 Comments: Your CT scan shows what is likely a hematoma in your thigh muscle. This can sometimes happen after surgery, And while it is uncomfortable, it will resolve on its own. Your white blood cell count is normal again and at this point, there is no evidence of infection around your wound. A prescription for oral Dilaudid has been electronically transmitted to the [facility] pharmacy in [place], the only pharmacy that is open on 20 December. You will need to call your orthopedist office first thing Monday to let them know you have been seen now in the emergency department twice over the weekend and find out if they have any further recommendations or would like to see you sooner. Discharge Date/Time: 12/20/22 01:27
[2022-12-20] MEDS: HYDROmorphone 1 MG/ML CARPUJECT IVP STA (01:23)
[2022-12-20 01:24] VITALS: BP 122/63
== END 2022-12-20 01:27 | disposition home or self-care (01) ==
LOC: ED 19:55
DX: G89.18 Other acute postprocedural pain (principal); M25.551 Pain in right hip; M79.651 Pain in right thigh; M96.840 Postprocedural hematoma of a musculoskeletal structure following a musculoskeletal system procedure
CPT/HCPCS: 36415; 73701; 80053; 83690; 85025; 96374; 96376; 99283; J1170; Q9967

== ENCOUNTER 2022-12-21 15:15 | Outpatient (CLI) | payer MEDICARE, BC | END 2022-12-21 23:59 | disposition critical access hospital (66) | LOC: EMS 15:15 | DX: K92.1 Melena (principal) | CPT/HCPCS: A0425; A0429 ==

== ENCOUNTER 2022-12-21 15:32 | Inpatient (IN) | payer MEDICARE, BC ==
--- NOTE | 2022-12-21 15:41 | ED Physician Documentation ---
History of Present Illness - Stated complaint Stated Complaint: BODY ACHES - Additonal information Additional information: Patient presents with generalized body ache. Past medical significant for recent right total hip replacement. Has been taking oral Dilaudid at home for pain control. Today had 5-6 dark red gout we/bloody bowel movements. Review of Systems Constitutional: reports: Myalgias. denies: Fever, Chills Eyes: denies: Loss of vision Ears: denies: Loss of hearing Nose: denies: Rhinorrhea / runny nose Throat: denies: Dental pain / toothache Cardiac: denies: Chest pain / pressure Respiratory: denies: Dyspnea GI: reports: Nausea, Vomiting, Bloody / black stool. denies: Abdominal Pain : denies: Dysuria Skin: denies: Rash Musculoskeletal: denies: Neck pain Neurologic: denies: Generalized weakness PD PAST MEDICAL HISTORY - Past Surgical History Past Surgical History: Yes Ortho: Knee replacement - Present Medications Home Medications: Ambulatory Orders Medication Instructions Recorded Confirmed HYDROmorphone [Dilaudid] 2 mg PO Q4H PRN #15 tablet 12/20/22 12/22/22 Aspirin EC [Ecotrin] 162 mg PO DAILY 12/22/22 12/22/22 Benazepril HCl [Lotensin] 10 mg PO DAILY 12/22/22 12/22/22 Benazepril HCl [Lotensin] 20 mg PO QPM 12/22/22 12/22/22 Budesonide [Entocort EC] 3 mg PO MOWEFR 12/22/22 12/22/22 Calcium Carbonate/Vitamin D3 2 each PO DAILY 12/22/22 12/22/22 [Calcium 600-Vit D3 200 Tablet] Cholecalciferol (Vitamin D3) 2,000 unit PO DAILY 12/22/22 12/22/22 [Vitamin D3] Colestipol HCl [Colestid] 1 gm PO DAILY 12/22/22 12/22/22 Ferrous Sulfate 325 mg PO DAILY 12/22/22 12/22/22 Levothyroxine [Synthroid] 75 mcg PO QDAC 12/22/22 12/22/22 Multivitamin [Theragran] 1 each PO DAILY 12/22/22 12/22/22 - Allergies Allergies/Adverse Reactions: Allergies Allergy/AdvReac Type Severity Reaction Status Date / Time hydrochlorothiazide Allergy Anaphylaxis Verified 12/19/22 19:59 - Social History Does the pt smoke?: No Smoking Status: Never smoker Does the pt drink ETOH?: No Does the pt have substance abuse?: No - Immunizations Immunizations are current?: Yes PD ED PE NORMAL - Vitals Vital signs reviewed: Yes - General General: Alert and oriented X 3, No acute distress, Well developed/nourished - HEENT HEENT: Atraumatic, PERRL, EOMI, Ears normal, Moist mucous membranes, Pharynx benign - Neck Neck: Supple, no meningeal sign, No bony TTP, No adenopathy, Thyroid normal, No JVD, No bruit - Cardiac Cardiac: RRR, No murmur, No gallop - Respiratory Respiratory: No respiratory distress - Abdomen Abdomen: Normal bowel sounds - Female Female : Deferred - Rectal Rectal: Deferred - Back Back: No spinal TTP - Derm Derm: Normal color - Extremities Extremities: No deformity Results - Vitals Vitals: Oxygen O2 Source Room air - EKG (time done) 1642 EKG releavant findings:: EKG personally interpreted by author of this note. Relevant findings are: Sinus rhythm with rate 76 bpm. Normal axis. Normal NV, QRS, QTc intervals. No ST segment elevations or T wave inversions primary - Labs Labs: Laboratory Tests 12/21/22 12/21/22 12/21/22 15:47 15:47 15:47 WBC 8.2 RBC 2.41 L Hgb 7.4 L Hct 22.7 L MCV 94.2 MCH 30.7 MCHC 32.6 RDW 13.9 Plt Count 438 MPV 8.7 Neut # (Auto) 5.7 Lymph # (Auto) 1.5 [place] # (Auto) 0.7 Eos # (Auto) 0.2 Baso # (Auto) 0.0 Absolute Nucleated RBC 0.00 Nucleated RBC % 0.0 PT 12.7 H INR 1.2 Sodium 141 Potassium 3.3 L Chloride 107 Carbon Dioxide 28 Anion Gap 6.0 BUN 9 Creatinine 0.6 Estimated GFR (MDRD) 99 Glucose 105 H Calcium 8.1 L Total Bilirubin 0.8 AST 27 ALT 33 Alkaline Phosphatase 57 Total Protein 5.7 L Albumin 2.7 L Globulin 3.0 Albumin/Globulin Ratio 0.9 L Lipase 23 Nasal Adenovirus (PCR) Nasal B. parapertussis DNA (PCR) Nasal Coronavir 229E PCR Nasal Coronavir HKU1 PCR Nasal Coronavir NL63 PCR Nasal Coronavir OC43 PCR Nasal Enterovir/Rhinovir PCR Nasal Influenza B PCR Nasal Influenza A PCR Nasal Parainfluen 1 PCR Nasal Parainfluen 2 PCR Nasal Parainfluen 3 PCR Nasal Parainfluen 4 PCR Nasal RSV (PCR) Nasal B.pertussis DNA PCR Nasal C.pneumoniae (PCR) [place] Human Metapneumo PCR Nasal M.pneumoniae (PCR) Nasal SARS-CoV-2 (PCR) Stl Occult Blood (IFOB) Blood Type Blood Type Recheck Antibody Screen Crossmatch IS Only 12/21/22 12/21/22 12/21/22 15:47 15:55 16:40 WBC RBC Hgb Hct MCV MCH MCHC RDW Plt Count MPV Neut # (Auto) Lymph # (Auto) [place] # (Auto) Eos # (Auto) Baso # (Auto) Absolute Nucleated RBC Nucleated RBC % PT INR Sodium Potassium Chloride Carbon Dioxide Anion Gap BUN Creatinine Estimated GFR (MDRD) Glucose Calcium Total Bilirubin AST ALT Alkaline Phosphatase Total Protein Albumin Globulin Albumin/Globulin Ratio Lipase Nasal Adenovirus (PCR) NOT DETECTED Nasal B. parapertussis DNA (PCR) NOT DETECTED Nasal Coronavir 229E PCR NOT DETECTED Nasal Coronavir HKU1 PCR NOT DETECTED Nasal Coronavir NL63 PCR NOT DETECTED Nasal Coronavir OC43 PCR NOT DETECTED Nasal Enterovir/Rhinovir PCR NOT DETECTED Nasal Influenza B PCR NOT DETECTED Nasal Influenza A PCR NOT DETECTED Nasal Parainfluen 1 PCR NOT DETECTED Nasal Parainfluen 2 PCR NOT DETECTED Nasal Parainfluen 3 PCR NOT DETECTED Nasal Parainfluen 4 PCR NOT DETECTED Nasal RSV (PCR) NOT DETECTED Nasal B.pertussis DNA PCR NOT DETECTED Nasal C.pneumoniae (PCR) NOT DETECTED [place] Human Metapneumo PCR NOT DETECTED Nasal M.pneumoniae (PCR) NOT DETECTED Nasal SARS-CoV-2 (PCR) NOT DETECTED Stl Occult Blood (IFOB) Blood Type A NEGATIVE Blood Type Recheck A NEGATIVE Antibody Screen NEGATIVE Crossmatch IS Only See Detail 12/21/22 16:48 WBC RBC Hgb Hct MCV MCH MCHC RDW Plt Count MPV Neut # (Auto) Lymph # (Auto) [place] # (Auto) Eos # (Auto) Baso # (Auto) Absolute Nucleated RBC Nucleated RBC % PT INR Sodium Potassium Chloride Carbon Dioxide Anion Gap BUN Creatinine Estimated GFR (MDRD) Glucose Calcium Total Bilirubin AST ALT Alkaline Phosphatase Total Protein Albumin Globulin Albumin/Globulin Ratio Lipase Nasal Adenovirus (PCR) Nasal B. parapertussis DNA (PCR) Nasal Coronavir 229E PCR Nasal Coronavir HKU1 PCR Nasal Coronavir NL63 PCR Nasal Coronavir OC43 PCR Nasal Enterovir/Rhinovir PCR Nasal Influenza B PCR Nasal Influenza A PCR Nasal Parainfluen 1 PCR Nasal Parainfluen 2 PCR Nasal Parainfluen 3 PCR Nasal Parainfluen 4 PCR Nasal RSV (PCR) Nasal B.pertussis DNA PCR Nasal C.pneumoniae (PCR) [place] Human Metapneumo PCR Nasal M.pneumoniae (PCR) Nasal SARS-CoV-2 (PCR) Stl Occult Blood (IFOB) POSITIVE A Blood Type Blood Type Recheck Antibody Screen Crossmatch IS Only PD Medical Decision Making - ED course Complexity details: reviewed old records, reviewed results, considered differential, d/w patient, d/w interventional sale consultant ED course: Patient 67-year-old female presenting to the emergency department with ongoing fatigue, postoperative pain now with concern for lower GI bleed. Afebrile, h emodynamically stable. Abdominal exam benign. Light brown stool in the rectal vault that is guaiac positive. Hemoglobin stable. Care discussed with the hospitalist service who graciously agreed to hospitalize for further evaluation and treatment. Departure - Departure Disposition: ED Place in Observation Clinical Impression: Lower GI bleed Discharge Date/Time: 12/21/22 18:57
[2022-12-21 16:01] LABS: BASOPHILS % (AUTO) 0.4 %; EOSINOPHILS # (AUTO) 0.2 10^3/uL (0.0-0.7); EOSINOPHILS % (AUTO) 2.6 %; HCT - HEMATOCRIT 22.7 % (37.0-47.0); HGB - HEMOGLOBIN 7.4 g/dL (12.0-16.0); LYMPHOCYTES # (AUTO) 1.5 10^3/uL (1.5-3.5); LYMPHOCYTES % (AUTO) 18.9 %; MEAN CORPUSCULAR HEMOGLOBIN 30.7 pg (27.0-31.0); MEAN CORPUSCULAR HGB CONC 32.6 g/dL (32.0-36.0); MEAN CORPUSCULAR VOLUME 94.2 fL (81.0-99.0); MEAN PLATELET VOLUME 8.7 fL (7.9-10.8); MONOCYTES # (AUTO) 0.7 10^3/uL (0.0-1.0); MONOCYTES % (AUTO) 8.1 %; NEUTROPHILS # (AUTO) 5.7 10^3/uL (1.5-6.6); NEUTROPHILS % (AUTO) 69.3 %; PLT - PLATELET COUNT 438 10^3/uL (130-450); RED BLOOD COUNT 2.41 10^6/uL (4.20-5.40); RED CELL DISTRIBUTION WIDTH 13.9 % (12.0-15.0); WHITE BLOOD COUNT 8.2 x10^3/uL (4.8-10.8)
[2022-12-21 16:09] LABS: INR 1.2 (0.8-1.2); PT - PROTHROMBIN TIME 12.7 secs (9.9-12.6)
[2022-12-21 16:15] LABS: ALBUMIN 2.7 g/dL (3.2-5.5); ALBUMIN/GLOBULIN RATIO 0.9 (1.0-2.2); BILIRUBIN,TOTAL 0.8 mg/dL (0.2-1.0); CALCIUM 8.1 mg/dL (8.5-10.3); CREATININE 0.6 mg/dL (0.4-1.0); POTASSIUM 3.3 mmol/L (3.5-5.0); TOTAL PROTEIN 5.7 g/dL (6.7-8.2)
[2022-12-21 17:03] LABS: FECAL OCCULT BLOOD (FIT) POSITIVE (NEGATIVE)
[2022-12-21] MEDS ORDERED: ONDANSETRON 4 MG/2 ML VIAL IVP PRN (17:09)
[2022-12-21] MEDS ORDERED: ONDANSETRON ODT 4 MG TABLET TL PRN (17:09)
[2022-12-21] MEDS: POTASSIUM CHLORIDE 20 MEQ/15 ML UDC PO SCH (17:11)
[2022-12-21 17:23] LABS: BILIRUBIN,URINE NEGATIVE (NEGATIVE); GLUCOSE, URINE (UA) NEGATIVE (NEGATIVE); KETONES,URINE (UA) NEGATIVE (NEGATIVE); LEUKOCYTE ESTERASE, URINE NEGATIVE (NEGATIVE); NITRITE,URINE NEGATIVE (NEGATIVE); OCCULT BLOOD,URINE NEGATIVE (NEGATIVE); PROTEIN,URINE NEGATIVE (NEGATIVE); UROBILINOGEN,URINE 0.2 (NORMAL) E.U./dL (NORMAL)
--- NOTE | 2022-12-21 17:23 | HISTORY & PHYSICAL EXAMINATION ---
Chief Complaint - Chief Complaint Chief Complaint: bloody stool in recent THR patient w near syncope History of Present Illness - Admitted From Admitted From:: home via EMS - History Obtained From Records Reviewed: [facility] History obtained from: Dr. Javed Exam Limitations: none - History of Present Illness HPI Comment/Other: A 67-year-old female who just recently had an elective hip replacement. This was done approximately December 13. She states that her DVT prophylaxis was an aspirin a day. She does not have any history of peptic ulcer disease. She has no history of diverticular bleeding. However she does have a history of collagenous colitis. She has frequent stools sometimes up to 6 a day. Her symptoms are controlled with Entocort. She use to see Dr. Garcia with [facility] and now sees Ismael Cruz MD. Next scope is due November 2024. She does Entocort once in the morning Monday, and 1 colestipol in the morning and in the evening. She uses loperamide as needed.With her last visit, they do not recommend changing her regimen. In the past she has taken rifaximin and it did not work. She asked about rifaximin again this year and it was explained to her that this is used in small bowel overgrowth, not in this disease.He feels that she will need some form of maintenance therapy for her collagenous colitis as long as she is on a medication such as Zoloft. She has not been seen in the emergency room on December 18, December 20, and today. She normally has high blood pressure For which she takes benazepril in the morning and at night. That was a recent change. As in the last year. Prior to that she had "low blood pressure" of 100/60. Did not need to take medications for very long time. But that changed that she moved would be, got a little bit older. She has a history of intermittent lightheadedness. Especially when her blood pressure used to be low. But the lightheadedness worsened ever since she had a hip replacement. Her surgery was done by Dr. Mccoy, at [facility].She knows that she has a hematoma in the joint. She has such severe lightheadedness on December 18 that she had near syncope at home, but was able to sit down immediately and did not fall. Did not lose consciousness. She feels constantly cold, and her hip is just killing her. When the EMS technicians picked her up at her house with the first ER visit, her pressure was 91 systolic. With 500 cc bolus she went to 101 systolic. She was sent home with stable vitals, and a hemoglobin of 8.3 that day. Her baseline hemoglobin is 14.2. She has been subsequently seen for the same problem on December 19 and today. Hemoglobin was 7.5 that day, and 7.4 today. Today is different in that she had several red, sticky stools. No rectal pain. No abdominal pain. No emesis. She has generalized body aches, but denies fever, chills, urgency, frequency. Today's vital signs show her to have a temperature of 36.6. Heart rate 77. Blood pressure 128/66 as well as 163/117. They were unable to document orthostatic hypotension because "her hip hurts too much". She could not stand. The ER doctor kept on stressing that she looks "worn out and fatigued". White cell count was 8.2, hemoglobin 7.4. Platelets 438. INR is 1.2. Potassium is low at 3.3. Total protein is low at 5.7, albumin low at 2.7. After discussion. I asked him to please document at least a sitting orthostatic blood pressure. I decided to place her under observation status. History - Past Medical History Cardiovascular: reports: Hypertension Respiratory: reports: Emphysema (Centrilobular seen on CT 07/2013, 01/2020), Sleep apnea (Mild sleep apnea but O2 sats do not drop so no benefit of CPAP) Endocrine/Autoimmune: reports: HyPOthyroidism (Autoimmune. Positive thyroid antibody test.) GI: reports: Chronic diarrhea, Other (collagenous colitis, scope 2014. Entocort 3 times weekly. ) COLORECTAL SURGEON: reports: Other (Cervical cancer, G0, P0) : reports: Incontinence (OAB, meli Estrada MD. Tried oxybutinin but mouth dry. ), Chronic bladder infection (Resistant E. coli October 2019), Other (Cervical cancer) HEENT: reports: None Psych: reports: Anxiety (Insomnia. As needed hydroxyzine/melatonin. Historically used low-dose alprazolam for resistant symptoms.), Other (History of alcohol abuse, clean and sober) Musculoskeletal: reports: Osteopenia (Takes calcium and vitamin D) Derm: reports: Other (Perioral dermatitis) MRSA Hx?: No - Past Surgical History General: reports: Colonoscopy (2014 and 2019) Ortho: reports: Hip replacement (2017), Knee replacement, Other (Left thumb surgery, 10/2014, ankle surgery 08/2018) HEENT: reports: Tonsil/Adenoidectomy - Family & Social History Family History Comment/Other: Mom had breast cancer twice, and had complications of Alzheimer's. age 86. Father had colon cancer, age 60. Sister had breast cancer. No children. Living arrangement: At home Living Situation: With spouse/s.o. Social History Notes: [place] J[facility] ale[facility]andre. Reestablish care here in 2018. Former smoker. 1/2 pack/day starting in 1966. Quit 08/2019. Never used smokeless tobacco. Has never used vaping or e-cigarette. No history of recreational substance abuse.Does have history of alcoholism and has been clean and sober for >20 years. 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[employer].Lives with her in their own home - Substance History Use: Uses substance without health or social issues: NONE - POLST Patient has POLST: No POLST Status: Full Code Meds/Allgy - Home Medications Home Medications: Ambulatory Orders Medication Instructions Recorded Confirmed Nitrofurantoin Monohyd/M-Cryst 100 mg PO BID #10 capsule 11/02/19 [Macrobid 100 mg Capsule] HYDROmorphone [Dilaudid] 2 mg PO Q4H PRN #15 tablet 12/20/22 - Allergies Allergies/Adverse Reactions: Allergies Allergy/AdvReac Type Severity Reaction Status Date / Time hydrochlorothiazide Allergy Anaphylaxis Verified 12/19/22 19:59 Review of Systems - Constitutional Constitutional: reports: Fatigue, Weakness, Poor appetite - Eyes Eyes: denies: Pain, Irritation, Amaurosis, Blurred vision - Ears, Nose & Throat Ears, Nose & Throat: denies: Ear pain, Hearing loss, Hearing aids, Tinnitus, Postnasal drainage, Sore throat, Hoarseness - Cardiovascular Cariovascular: reports: Lightheadedness, Syncope. denies: Irregular heart rate, Palpitations, Chest pain, Edema, Exertional dyspnea, Decr. exercise tolerance - Respiratory Respiratory: denies: Cough, Sputum production, Wheezing, Snoring, SOB at rest, SOB with exertion - Gastrointestinal Gastrointestinal: reports: Abdominal distention, Diarrhea, Change in bowel habits, Bloody stools, Nausea, Bloating (Ever since she had to take the aspirin and Aleve for her hip pain. She does wonders if she just made a mistake taking to nonsteroidals). denies: Abdominal pain, Rectal bleeding, Vomiting, Bile emesis, Mookie blood emesis, Coffee grounds emesis, Reflux/heartburn - Genitourinary Genitourinary: reports: Frequency, Urgency, Incontinence. denies: Dysuria, H ematuria, Flank pain, Nocturia - Musculoskeletal Musculoskeletal: reports: Muscle aches, Stiffness, Joint pain (In the right hip that was operated on). denies: Muscle pain, Back pain - Integumentary Integumentary: denies: Rash, Pruritis, Lesions, Dryness - Neurological Neurological: reports: Dizziness. denies: General weakness, Focal weakness, Headache, Memory problems, Pre-existing deficit, Abnormal gait - Psychiatric Psychiatric: denies: Depression, Anxiety, Suicidal, Delusions, Hallucinations, Homicidal - Endocrine Endocrine: denies: Polyuria, Polydypsia, Polyphagia, Intolerance to cold - Hematologic/Lymphatic Hematologic/Lymphatic: reports: Anemia, Bruising. denies: Petechiae, Blood clots, Lymphadenopathy, Bleeding tendencies Prior Level of Functionality: She is an independent female with regards to activities of daily living. Only recently needed durable medical equipment because of the hip surgery. 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 Exam - Vital Signs Reviewed Vital Signs: Yes Vital Signs: Vital Signs x48h Temp Pulse Resp BP Pulse Ox 12/21/22 15:44 80 16 163/117 H 95 12/21/22 15:39 36.6 C 77 16 128/66 97 - Physical Exam General Appearance: positive: No acute distress, Alert Eyes Bilateral: positive: PERRL, EOMI ENT: positive: No signs of dehydration Neck: positive: No JVD. negative: Stiff neck Respiratory: positive: No respiratory distress. negative: Wheezes, Rales, Rhonchi Cardiovascular: positive: Regular rate & rhythm. negative: Tachycardia Peripheral Pulses: positive: 1+ Abdomen: positive: Other (Bloated and achy. But no tenderness. Hypoactive bowel sounds.). negative: Guarding, Rebound Skin: positive: Warm, Dry Extremities: positive: No pedal edema, Other (Tender right hip. Incision closed and healed. No redness or drainage.) Neurologic/Psychiatric: positive: Oriented x3, CN's nml (2-12), Motor nml Conclusion/Plan - Problem List (1) Lower GI bleed Conclusion/Plan: This patient has collagenous colitis by history. Numerous, numerous colonoscopies that have documented the inflammation. So I doubt that she has a neoplasm as the cause of this lower GI bleed. She does not have a history of diverticulosis. She has had no recent travel that would give her infectious diarrhea. She does not give a food poisoning type of history. She may be experiencing a flare of her chronic collagenous colitis. In the past she has been on Entocort 3 mg capsules, 1 capsule 3 times a week and she has not changed that. She did receive antibiotics pre and postoperatively for her hip replacement but that was part of the usual protocol. She did not have any prolonged antibiotic therapy. Plan: I will place in Observation status I will order Serial hemograms I will Transfuse if drops below 7 g of hemoglobin I will order Orthostatic blood pressure checks on a daily basis Check stool culture. Check C. difficile by PCR (2) Postoperative pain Conclusion/Plan: Due to hip. Plan: Work with physical therapy once her blood pressure stabilized and she is not lightheaded Tylenol for minor pain, oxycodone for moderate pain. (3) Anxiety about health Conclusion/Plan: Well-documented in the medical record. She has 5 pages describing bowel movements with her last GI visit. Medications in the past have included serotonin reuptake inhibitors, benzodiazepines, hypnotics such as Ambien or traz odone, and hydroxyzine. Her last alprazolam is a 1 mg tablet filled on December 05, 2022, 60 tablets. Plan: Alprazolam at night while here (4) Acute blood loss anemia Conclusion/Plan: Due to 2 things. 1 is the probable flare of collagenous colitis. Collagenous colitis is usually not associated with GI bleeding. She is also had a recent hip surgery. And the CT shows a large hematoma in the perioperative space. Plan: Serial hemograms as above If hemoglobin continues to drop, notify orthopedics. Our current orthopedic surgeon did not operate on this person. (5) Syncope, near Conclusion/Plan: Near syncope most likely due to orthostatic hypotension. She is recently had an increase in her benazepril. Is not twice a day. She has had an acute blood loss anemia. She has poor p.o. intake. Plan: I plan on holding her blood pressure medicine during her stay. And I think it may recommend that she not take it in the outpatient setting for a couple of weeks. She will be hydrated with 83.33 cc an hour. I am letting her have clear liquids and she laments that. So I expanded it to let her have cola at her request. Once her sticky stools have stopped, and her hemoglobin is stable, I will advance her diet - Lab Results Lab results reviewed: Yes Fish Bones: 12/21/22 15:47 12/21/22 15:47 - Diagnostic Imaging Results Diagnostic Imaging Results: positive: Final report reviewed Diagnostic Imaging Results Comments: Lower extremity CT done of the hip December 20 has heterogeneous soft tissue swelling and fluid density within the anterior compartment of the proximal right thigh representing an intramuscular hematoma. The differential includes possible abscess secondary infection and correlation is recommended. - EKG Results EKG Interpreted Independently: No Core Measures - Anticipated LOS I expect patient to be DC'd or transferred within 96 hours.: Yes - DVT/VTE - Prophylaxis VTE/DVT Device ordered at admit?: Yes
[2022-12-21 17:29] LABS: CLARITY,URINE CLEAR (CLEAR)
[2022-12-21 17:43] LABS: CORONAVIRUS 229E-RESP PCR NOT DETECTED; CORONAVIRUS HKU1-RESP PCR NOT DETECTED; CORONAVIRUS NL63-RESP PCR NOT DETECTED; CORONAVIRUS OC43-RESP PCR NOT DETECTED; HUMAN METAPNEUMOVIRUS NOT DETECTED; INFLUENZA A- RESP PCR PANEL NOT DETECTED; RHINOVIRUS/ENTEROVIRUS NOT DETECTED; SARS-CoV-2 -RESP PCR PANEL NOT DETECTED
[2022-12-21 17:44] LABS: B. PARAPERTUSSIS- RESP PCR PAN NOT DETECTED; B. PERTUSSIS- RESP PCR PANEL NOT DETECTED; C. PNEUMONIAE- RESP PCR PANEL NOT DETECTED; INFLUENZA B - RESP PCR PANEL NOT DETECTED; M. PNEUMONIAE- RESP PCR PANEL NOT DETECTED; PARAINFLUENZA VIRUS 1 NOT DETECTED; PARAINFLUENZA VIRUS 2 NOT DETECTED; PARAINFLUENZA VIRUS 3 NOT DETECTED; PARAINFLUENZA VIRUS 4 NOT DETECTED; RSV- RESP PCR PANEL NOT DETECTED
[2022-12-21] MEDS: MORPHINE 2 MG/ML CARPUJECT IVP PRN ×2 (18:52→20:44)
[2022-12-21] MEDS: SODIUM CHLORIDE 0.9% 1,000 ML IV SCH (18:53)
[2022-12-21 22:15] LABS: HCT - HEMATOCRIT 21.2 % (37.0-47.0); MEAN CORPUSCULAR HEMOGLOBIN 30.9 pg (27.0-31.0); MEAN CORPUSCULAR HGB CONC 32.5 g/dL (32.0-36.0); MEAN CORPUSCULAR VOLUME 95.1 fL (81.0-99.0); MEAN PLATELET VOLUME 8.4 fL (7.9-10.8); RED BLOOD COUNT 2.23 10^6/uL (4.20-5.40); RED CELL DISTRIBUTION WIDTH 13.9 % (12.0-15.0); WHITE BLOOD COUNT 8.5 x10^3/uL (4.8-10.8)
[2022-12-21 22:21] LABS: HGB - HEMOGLOBIN 6.9 g/dL (12.0-16.0)
[2022-12-21 23:45] LABS: HCT - HEMATOCRIT 21.1 % (37.0-47.0)
[2022-12-22 00:20] LABS: HGB - HEMOGLOBIN 6.9 g/dL (12.0-16.0)
--- NOTE | 2022-12-22 00:52 | PROVIDER PROGRESS NOTE ---
Car Wiper Note - Car Wiper Note Car Wiper Note: RN paged to report hgb 6.9 x 2. patient here with acute GIB. transfuse x 1 unit prbc. consent per PASTORA Villalobos Ma DO Internal Medicine [facility] [place] Car Wiper
[2022-12-22] MEDS: SODIUM CHLORIDE FLUSH 0.9% 10 ML SYRINGE IVP SCH ×3 (01:43→10:09)
[2022-12-22 06:34] LABS: HCT - HEMATOCRIT 26.2 % (37.0-47.0); HGB - HEMOGLOBIN 8.6 g/dL (12.0-16.0); MEAN CORPUSCULAR HEMOGLOBIN 30.5 pg (27.0-31.0); MEAN CORPUSCULAR HGB CONC 32.8 g/dL (32.0-36.0); MEAN CORPUSCULAR VOLUME 92.9 fL (81.0-99.0); MEAN PLATELET VOLUME 8.4 fL (7.9-10.8); RED BLOOD COUNT 2.82 10^6/uL (4.20-5.40); RED CELL DISTRIBUTION WIDTH 13.9 % (12.0-15.0); WHITE BLOOD COUNT 7.7 x10^3/uL (4.8-10.8)
[2022-12-22 06:46] LABS: CALCIUM 8.1 mg/dL (8.5-10.3); CREATININE 0.6 mg/dL (0.4-1.0); POTASSIUM 3.6 mmol/L (3.5-5.0)
[2022-12-22] MEDS: SODIUM CHLORIDE 0.9% 1,000 ML IV SCH (07:48)
[2022-12-22] MEDS: POTASSIUM CHLORIDE 20 MEQ/15 ML UDC PO SCH (07:48)
[2022-12-22] MEDS: oxyCODONE 5 MG TABLET PO PRN ×2 (07:50→15:50)
[2022-12-22] MEDS: MORPHINE 2 MG/ML CARPUJECT IVP PRN ×4 (10:09→23:55)
[2022-12-22 10:17] LABS: HCT - HEMATOCRIT 28.3 % (37.0-47.0); HGB - HEMOGLOBIN 9.4 g/dL (12.0-16.0); MEAN CORPUSCULAR HEMOGLOBIN 30.8 pg (27.0-31.0); MEAN CORPUSCULAR HGB CONC 33.2 g/dL (32.0-36.0); MEAN CORPUSCULAR VOLUME 92.8 fL (81.0-99.0); MEAN PLATELET VOLUME 8.4 fL (7.9-10.8); RED BLOOD COUNT 3.05 10^6/uL (4.20-5.40); RED CELL DISTRIBUTION WIDTH 13.9 % (12.0-15.0); WHITE BLOOD COUNT 8.2 x10^3/uL (4.8-10.8)
--- NOTE | 2022-12-22 11:32 | PHARMACY PROGRESS NOTE ---
- Best Possible Medication History Admit Date and Time: 12/21/22 2251 Processed by: Pharmacy Medication History completed: Yes Patient Interview: Completed Secondary Source(s): Spouse/Significant other, Physician records, Pharmacy records, Insurance records As the person ultimately responsible for medication therapy, providers are able to order a medication from an existing home medication list in [facility] via the "Reconcile Routine" prior to Confirmation of that medication by administrative support clerk. Such practice is discouraged except when the physician, in their clinical judgment, deems that a medical need exists for a medication without regard to previous use.
--- NOTE | 2022-12-22 17:22 | PROVIDER PROGRESS NOTE ---
Subjective - Prog Note Date Prog Note Date: 12/22/22 Prog Note Time: 17:20 - Subjective Pt reports feeling: Improved Subjective: She has had 3 bowel movements today. The first 1 was bloody, and the next 2 were more her usual mucinous collagenous. Mix with water. She denies abdominal pain, fever, chills. She and her have no idea why she was admitted. This lets me realize that she has no recollection of meeting me last night. I reminded her of our encounter, the questions I asked, and then she said that she remembered snippets. Little pieces here and there. I reexplained that she was here because of GI bleeding. She was shocked because she thought she was here because of her hip pain. I explained that her first 2 ER encounters on December 19 and were about her hip pain. But yesterday the encounter was on hip pain and bloody stool. She just does not remember that. The reason she was admitted was due to lower GI bleeding, and we were worried that she was going to have worsening anemia on top of her already present anemia due to recent hip surgery. Last night she dropped to 6.9 g of hemoglobin and required 1 unit of blood. Hemoglobin was 8.6 at 6:00 this morning. And then 9.4 at 10:00 this morning. I have advanced her diet to a regular diet from clear liquid diet. I felt she was stable enough that she would not need emergency surgery or procedure. She was got I explained that to her because she just thought we were starving her and we had forgotten about her. Current Medications - Current Medications Current Medications: Active Medications Acetaminophen (Acetaminophen 325 Mg Tablet) 650 mg PO Q4HR PRN PRN Reason: Pain 1 to 4, or Fever Budesonide (Budesonide 3 Mg Capsule) 3 mg PO MoWeFr@0900 ARAM Morphine Sulfate (Morphine 2 Mg/Ml Carpuject) 2 mg IVP Q2HR PRN PRN Reason: Pain 8 to 10 Last Admin: 12/22/22 13:22 Dose: 2 mg Ondansetron HCl (Ondansetron Odt 4 Mg Tablet) 4 mg TL Q6HR PRN PRN Reason: Nausea / Vomiting Ondansetron HCl (Ondansetron 4 Mg/2 Ml Vial) 4 mg IVP Q6HR PRN PRN Reason: Nausea / Vomiting Oxycodone HCl (Oxycodone 5 Mg Tablet) 5 mg PO Q4HR PRN PRN Reason: Pain 5 to 7 Last Admin: 12/22/22 15:50 Dose: 5 mg Sodium Chloride (Sodium Chloride Flush 0.9% 10 Ml Syringe) 10 ml IVP PRN PRN PRN Reason: NEEDED PER PROVIDER ORDERS Sodium Chloride (Sodium Chloride Flush 0.9% 10 Ml Syringe) 10 ml IVP 0100,0900,1700 ARAM Last Admin: 12/22/22 10:09 Dose: 10 ml Aspirin EC [Ecotrin] 162 mg PO DAILY 12/22/22 Benazepril HCl [Lotensin] 10 mg PO DAILY 12/22/22 Benazepril HCl [Lotensin] 20 mg PO QPM 12/22/22 Budesonide [Entocort EC] 3 mg PO MOWEFR 12/22/22 Calcium Carbonate/Vitamin D3 [Calcium 600-Vit D3 200 Tablet] 2 each PO DAILY 12/22/22 Cholecalciferol (Vitamin D3) [Vitamin D3] 2,000 unit PO DAILY 12/22/22 Colestipol HCl [Colestid] 1 gm PO DAILY 12/22/22 Ferrous Sulfate 325 mg PO DAILY 12/22/22 Levothyroxine [Synthroid] 75 mcg PO QDAC 12/22/22 Multivitamin [Theragran] 1 each PO DAILY 12/22/22 Objective - Vital Signs/Intake & Output Reviewed Vital Signs: Yes Vital Signs: Vital Signs x48h Temp Pulse Pulse Pulse Pulse Pulse Resp 12/22/22 15:28 37 C 80 16 12/22/22 14:00 86 71 12/22/22 13:00 12/22/22 12:34 37.1 C 85 17 12/22/22 11:20 71 71 71 BP BP BP BP BP Pulse Ox Pulse Ox 12/22/22 15:28 112/71 100 12/22/22 14:00 158/63 H 138/65 H 12/22/22 13:00 144/67 H 12/22/22 12:34 118/50 L 99 12/22/22 11:20 142/56 H 136/62 H 138/65 H 99 Pulse Ox Pulse Ox 12/22/22 15:28 12/22/22 14:00 12/22/22 13:00 12/22/22 12:34 12/22/22 11:20 100 100 Intake & Output: Intake & Output 12/19/22 12/20/22 12/21/22 12/22/22 23:59 23:59 23:59 23:59 Intake Total 487 2247.583 Output Total 4 Balance 487 2243.583 - Objective General Appearance: positive: No acute distress, Alert (Sitting up in bed eating dinner), Other ( at the bedside sitting in a chair.) Eyes Bilateral: positive: PERRL, EOMI ENT: positive: No signs of dehydration Neck: positive: No JVD. negative: Stiff neck Respiratory: positive: No respiratory distress. negative: Wheezes, Rales, Rhonchi Cardiovascular: positive: Regular rate & rhythm Abdomen: positive: Non-tender, No organomegaly, Nml bowel sounds, No distention Skin: positive: Warm, Dry Extremities: positive: No pedal edema, Other (Right hip is swollen, boggy skin. Incision closed. No drainage. Redness.) Neurologic/Psychiatric: positive: Oriented x3, CN's nml (2-12), Motor nml - Lab Results Fish Bones: 12/22/22 10:09 12/22/22 06:29 Other Labs: Lab Results x24hrs 12/22/22 12/22/22 12/22/22 Range/Units 10:09 06:29 06:29 WBC 8.2 7.7 (4.8-10.8) x10^3/uL RBC 3.05 L 2.82 L (4.20-5.40) 10^6/uL Hgb 9.4 L 8.6 L (12.0-16.0) g/dL Hct 28.3 L 26.2 L (37.0-47.0) % MCV 92.8 92.9 (81.0-99.0) fL MCH 30.8 30.5 (27.0-31.0) pg MCHC 33.2 32.8 (32.0-36.0) g/dL RDW 13.9 13.9 (12.0-15.0) % Plt Count 519 H 475 H (130-450) 10^3/uL MPV 8.4 8.4 (7.9-10.8) fL Sodium 139 (135-145) mmol/L Potassium 3.6 (3.5-5.0) mmol/L Chloride 108 (101-111) mmol/L Carbon Dioxide 24 (21-32) mmol/L Anion Gap 7.0 (6-13) BUN 6 (6-20) mg/dL Creatinine 0.6 (0.4-1.0) mg/dL Estimated GFR (MDRD) 99 (>89) Glucose 118 H (70-100) mg/dL Calcium 8.1 L (8.5-10.3) mg/dL Urine Color Urine Clarity (CLEAR) Urine pH (5.0-7.5) PH Ur Specific [place] (1.002-1.030) Urine Protein (NEGATIVE) mg/dL Urine Glucose (UA) (NEGATIVE) mg/dL Urine Ketones (NEGATIVE) mg/dL Urine Occult Blood (NEGATIVE) Urine Nitrite (NEGATIVE) Urine Bilirubin (NEGATIVE) Urine Urobilinogen (NORMAL) E.U./dL Ur Leukocyte Esterase (NEGATIVE) Ur Microscopic Review Urine Culture Comments Nasal Adenovirus (PCR) Nasal B. parapertussis DNA (PCR) Nasal Coronavir 229E PCR Nasal Coronavir HKU1 PCR Nasal Coronavir NL63 PCR Nasal Coronavir OC43 PCR Nasal Enterovir/Rhinovir PCR Nasal Influenza B PCR Nasal Influenza A PCR Nasal Parainfluen 1 PCR Nasal Parainfluen 2 PCR Nasal Parainfluen 3 PCR Nasal Parainfluen 4 PCR Nasal RSV (PCR) Nasal B.pertussis DNA PCR Nasal C.pneumoniae (PCR) Salazar Human Metapneumo PCR Nasal M.pneumoniae (PCR) Nasal SARS-CoV-2 (PCR) Blood Type Antibody Screen Crossmatch IS Only 12/21/22 12/21/22 12/21/22 Range/Units 23:36 22:11 17:18 WBC 8.5 (4.8-10.8) x10^3/uL RBC 2.23 L (4.20-5.40) 10^6/uL Hgb 6.9 L* 6.9 L* (12.0-16.0) g/dL Hct 21.1 L 21.2 L (37.0-47.0) % MCV 95.1 (81.0-99.0) fL MCH 30.9 (27.0-31.0) pg MCHC 32.5 (32.0-36.0) g/dL RDW 13.9 (12.0-15.0) % Plt Count 424 (130-450) 10^3/uL MPV 8.4 (7.9-10.8) fL Sodium (135-145) mmol/L Potassium (3.5-5.0) mmol/L Chloride (101-111) mmol/L Carbon Dioxide (21-32) mmol/L Anion Gap (6-13) BUN (6-20) mg/dL Creatinine (0.4-1.0) mg/dL Estimated GFR (MDRD) (>89) Glucose (70-100) mg/dL Calcium (8.5-10.3) mg/dL Urine Color YELLOW Urine Clarity CLEAR (CLEAR) Urine pH 7.0 (5.0-7.5) PH Ur Specific [place] 1.010 (1.002-1.030) Urine Protein NEGATIVE (NEGATIVE) mg/dL Urine Glucose (UA) NEGATIVE (NEGATIVE) mg/dL Urine Ketones NEGATIVE (NEGATIVE) mg/dL Urine Occult Blood NEGATIVE (NEGATIVE) Urine Nitrite NEGATIVE (NEGATIVE) Urine Bilirubin NEGATIVE (NEGATIVE) Urine Urobilinogen 0.2 (NORMAL) (NORMAL) E.U./dL Ur Leukocyte Esterase NEGATIVE (NEGATIVE) Ur Microscopic Review NOT INDICATED Urine Culture Comments NOT INDICATED Nasal Adenovirus (PCR) Nasal B. parapertussis DNA (PCR) Nasal Coronavir 229E PCR Nasal Coronavir HKU1 PCR Nasal Coronavir NL63 PCR Nasal Coronavir OC43 PCR Nasal Enterovir/Rhinovir PCR Nasal Influenza B PCR Nasal Influenza A PCR Nasal Parainfluen 1 PCR Nasal Parainfluen 2 PCR Nasal Parainfluen 3 PCR Nasal Parainfluen 4 PCR Nasal RSV (PCR) Nasal B.pertussis DNA PCR Nasal C.pneumoniae (PCR) Salazar Human Metapneumo PCR Nasal M.pneumoniae (PCR) Nasal SARS-CoV-2 (PCR) Blood Type Antibody Screen Crossmatch IS Only 12/21/22 12/21/22 Range/Units 16:40 15:55 WBC (4.8-10.8) x10^3/uL RBC (4.20-5.40) 10^6/uL Hgb (12.0-16.0) g/dL Hct (37.0-47.0) % MCV (81.0-99.0) fL MCH (27.0-31.0) pg MCHC (32.0-36.0) g/dL RDW (12.0-15.0) % Plt Count (130-450) 10^3/uL MPV (7.9-10.8) fL Sodium (135-145) mmol/L Potassium (3.5-5.0) mmol/L Chloride (101-111) mmol/L Carbon Dioxide (21-32) mmol/L Anion Gap (6-13) BUN (6-20) mg/dL Creatinine (0.4-1.0) mg/dL Estimated GFR (MDRD) (>89) Glucose (70-100) mg/dL Calcium (8.5-10.3) mg/dL Urine Color Urine Clarity (CLEAR) Urine pH (5.0-7.5) PH Ur Specific [place] (1.002-1.030) Urine Protein (NEGATIVE) mg/dL Urine Glucose (UA) (NEGATIVE) mg/dL Urine Ketones (NEGATIVE) mg/dL Urine Occult Blood (NEGATIVE) Urine Nitrite (NEGATIVE) Urine Bilirubin (NEGATIVE) Urine Urobilinogen (NORMAL) E.U./dL Ur Leukocyte Esterase (NEGATIVE) Ur Microscopic Review Urine Culture Comments Nasal Adenovirus (PCR) NOT DETECTED Nasal B. parapertussis DNA (PCR) NOT DETECTED Nasal Coronavir 229E PCR NOT DETECTED Nasal Coronavir HKU1 PCR NOT DETECTED Nasal Coronavir NL63 PCR NOT DETECTED Nasal Coronavir OC43 PCR NOT DETECTED Nasal Enterovir/Rhinovir PCR NOT DETECTED Nasal Influenza B PCR NOT DETECTED Nasal Influenza A PCR NOT DETECTED Nasal Parainfluen 1 PCR NOT DETECTED Nasal Parainfluen 2 PCR NOT DETECTED Nasal Parainfluen 3 PCR NOT DETECTED Nasal Parainfluen 4 PCR NOT DETECTED Nasal RSV (PCR) NOT DETECTED Nasal B.pertussis DNA PCR NOT DETECTED Nasal C.pneumoniae (PCR) NOT DETECTED Salazar Human Metapneumo PCR NOT DETECTED Nasal M.pneumoniae (PCR) NOT DETECTED Nasal SARS-CoV-2 (PCR) NOT DETECTED Blood Type A NEGATIVE Antibody Screen NEGATIVE Crossmatch IS Only See Detail Assessment/Plan - Problem List (1) Lower GI bleed Impression: This patient has collagenous colitis by history. Numerous, numerous colonoscopies that have documented the inflammation. So I doubt that she has a neoplasm as the cause of this lower GI bleed. She does not have a history of diverticulosis. She has had no recent travel that would give her infectious diarrhea. She does not give a food poisoning type of history. She may be exper iencing a flare of her chronic collagenous colitis. In the past she has been on Entocort 3 mg capsules, 1 capsule 3 times a week and she has not changed that. She did receive antibiotics pre and postoperatively for her hip replacement but that was part of the usual protocol. She did not have any prolonged antibiotic therapy. Stool for C. difficile toxin was not processed by the lab since it was not a good specimen. Stool was submitted for culture and the results are pending. She has not had any fevers since admission, and white cell count remains normal. Frequency of bowel movements has diminished and now consistency of the stool is more what her usual stool is with colitis. Plan: Change from observation status to inpatient status. CBC tomorrow morning Continue regular diet Review stool cultures when they get resulted Plan for discharge tomorrow if hemoglobin remains stable and she is tolerating her diet. Resume her usual colitis drugs Of Entocort. (2) Postoperative pain Conclusion/Plan: Due to hip Surgery. Yesterday that was her main complaint. Pain is much better controlled today but still her main focus.She has not had physical therapy started yet. She had surgery approximately December 14. She states she is due to start home health PT December 27. Plan: Work with physical therapy Here. That was ordered. Tylenol for minor pain, oxycodone for moderate pain. (3) Anxiety about health Conclusion/Plan: Well-documented in the medical record. She has 5 pages describing bowel movements with her last GI visit. Medications in the past have included serotonin reuptake inhibitors, benzodiazepines, hypnotics such as Ambien or trazodone, and hydroxyzine. Her last alprazolam is a 1 mg tablet filled on December 05, 2022, 60 tablets. Plan: Alprazolam at night while here Was ordered on admission. Currently I do not plan on changing that. (4) Acute blood loss anemia Conclusion/Plan: Due to 2 things. 1 is the probable flare of collagenous colitis. Collagenous colitis is usually not associated with GI bleeding. She is also had a recent hip surgery. And the CT shows a large hematoma in the perioperative space. Blood in her stool appears to have slowed down. Overall it looks like she may have bleeding from colitis. Plan: Serial hemograms as above Wound is stable. I do not think any to call orthopedics. Check hemogram before discharge tomorrow morning (5) Syncope, near Conclusion/Plan: Near syncope most likely due to orthostatic hypotension. She is recently had an increase in her benazepril. Is not twice a day. She has had an acute blood loss anemia. She has poor p.o. intake. I am holding her blood pressure medicine during the stay. This morning supine blood pressure 138/65. Sitting blood pressure 142/56. Standing blood pressure 136/62. Plan: Resume her blood pressure medicine at discharge. I will stop IV hydration since she is now having adequate p.o. intake.
[2022-12-23] MEDS: SODIUM CHLORIDE FLUSH 0.9% 10 ML SYRINGE IVP SCH ×3 (01:26→17:02)
[2022-12-23] MEDS: oxyCODONE 5 MG TABLET PO PRN ×4 (01:26→21:10)
[2022-12-23 05:31] LABS: BASOPHILS % (AUTO) 0.5 %; EOSINOPHILS # (AUTO) 0.3 10^3/uL (0.0-0.7); HCT - HEMATOCRIT 29.3 % (37.0-47.0); HGB - HEMOGLOBIN 9.7 g/dL (12.0-16.0); LYMPHOCYTES # (AUTO) 2.3 10^3/uL (1.5-3.5); LYMPHOCYTES % (AUTO) 26.8 %; MEAN CORPUSCULAR HEMOGLOBIN 30.7 pg (27.0-31.0); MEAN CORPUSCULAR HGB CONC 33.1 g/dL (32.0-36.0); MEAN CORPUSCULAR VOLUME 92.7 fL (81.0-99.0); MEAN PLATELET VOLUME 8.6 fL (7.9-10.8); MONOCYTES # (AUTO) 0.7 10^3/uL (0.0-1.0); MONOCYTES % (AUTO) 8.5 %; NEUTROPHILS # (AUTO) 5.3 10^3/uL (1.5-6.6); NEUTROPHILS % (AUTO) 60.3 %; PLT - PLATELET COUNT 614 10^3/uL (130-450); RED BLOOD COUNT 3.16 10^6/uL (4.20-5.40); RED CELL DISTRIBUTION WIDTH 14.1 % (12.0-15.0); WHITE BLOOD COUNT 8.7 x10^3/uL (4.8-10.8)
[2022-12-23 05:43] LABS: CALCIUM 8.5 mg/dL (8.5-10.3); CREATININE 0.6 mg/dL (0.4-1.0); POTASSIUM 3.8 mmol/L (3.5-5.0)
[2022-12-23] MEDS: MORPHINE 2 MG/ML CARPUJECT IVP PRN ×5 (08:04→22:54)
[2022-12-23] MEDS ORDERED: BUDESONIDE 3 MG CAPSULE PO SCH (09:00)
[2022-12-23] MEDS: ACETAMINOPHEN 325 MG TABLET PO PRN ×2 (17:02→21:10)
--- NOTE | 2022-12-23 18:23 | PROVIDER PROGRESS NOTE ---
Progress Note December 23, 2022 6:20 PM Patient was seen this morning and this afternoon. She had 1 bowel movement this morning that had some blood in it. But her diet is being tolerated. No abdominal pain. She had an abrupt onset of vertigo when she was at the toilet this morning. It went away almost as quickly as it came on. She had an Lashawn maneuver yesterday that really helped her. She would like PT to do that again today. I was finally able to get a C. difficile on her stool and it is negative. Her stool culture is pending. The patient has no fever, chills, and vitals have been stable since yesterday. Vitals: Temperature 36.5, heart rate 81, blood pressure 136/56. Respirations 18. 100% on room air. Alert oriented middle-aged female who looks younger than stated age. Very comfortable. No distress whatsoever from cardiac, pulmonary or abdominal complaints Neck is supple Lungs are clear Regular rate and rhythm Abdomen is soft, nontender, hyperactive bowel sounds. No rebound or guarding and no masses. Extremities have no edema. Lab: BMP is normal with a glucose of 117 CBC has a white cell count of 8.7. Hemoglobin 9.7. Platelets 614. Stool negative for C. difficile Assessment/Plan - Problem List (1) Lower GI bleed Impression: This patient has collagenous colitis by history. Numerous, numerous colonoscopies that have documented the inflammation. So I doubt that she has a neoplasm as the cause of this lower GI bleed. She does not have a history of diverticulosis. She has had no recent travel that would give her infectious diarrhea. She does not give a food poisoning type of history. She may be experiencing a flare of her chronic collagenous colitis. In the past she has been on Entocort 3 mg capsules, 1 capsule 3 times a week and she has not changed that. She did receive antibiotics pre and postoperatively for her hip replacemen t but that was part of the usual protocol. She did not have any prolonged antibiotic therapy. Stool for C. difficile toxin was not processed by the lab since it was not a good specimen. I had that repeated this morning and she is C. difficile negative. Stool was submitted for culture and the results are pending. She has not had any fevers since admission, and white cell count remains normal. F requency of bowel movements has diminished and now consistency of the stool is more what her usual stool is with colitis. Still having occasional blood. Plan: I will keep her in the hospital 1 more day. She resumed her Entocort yesterday but still has blood today. CBC tomorrow morning Continue regular diet Review stool cultures when they get resulted Plan for discharge tomorrow if hemoglobin remains stable and she is tolerating her diet. (2) Postoperative pain Conclusion/Plan: Due to hip Surgery. 12/21 that was her main complaint. Pain is much better controlled but still a focus.She has not had physical therapy started yet. She had surgery approximately December 14. She states she is due to start home health PT December 27. She was seen and evaluated by PT. They feel she is doing well. Plan: Work with physical therapy Here. Tylenol for minor pain, oxycodone for moderate pain. (3) Anxiety about health Conclusion/Plan: Well-documented in the medical record. She has 5 pages describing bowel movements with her last GI visit. Medications in the past have included serotonin reuptake inhibitors, benzodiazepines, hypnotics such as Ambien or trazodone, and hydroxyzine. Her last alprazolam is a 1 mg tablet filled on December 05, 2022, 60 tablets. Plan: Alprazolam at night while here Was ordered on admission. Currently I do not plan on changing that. (4) Acute blood loss anemia Conclusion/Plan: Due to 2 things. 1 is the probable flare of collagenous colitis. Collagenous colitis is usually not associated with GI bleeding. #2: She is also had a recent hip surgery. And #3, the CT shows a large hematoma in the perioperative space. Blood in her stool appears to have slowed down. Overall it looks like she may have bleeding from colitis. Plan: Serial hemograms as above Wound is stable. I do not think any to call orthopedics. Check hemogram before discharge tomorrow morning (5) Syncope, near Conclusion/Plan: Near syncope most likely due to orthostatic hypotension. She is recently had an increase in her benazepril. Is not twice a day. She has had an acute blood loss anemia. She has poor p.o. intake. I am holding her blood pressure medicine during the stay. Blood pressure has stayed stable today. 153/61. As well as 136/56. Orthostatics were normal on December 22.IV hydration stopped December 22 and she is doing well. Plan: Resume her blood pressure medicine at discharge.
[2022-12-23] MEDS: SODIUM CHLORIDE FLUSH 0.9% 10 ML SYRINGE IVP PRN (22:54)
[2022-12-24] MEDS: SODIUM CHLORIDE FLUSH 0.9% 10 ML SYRINGE IVP SCH (00:16)
[2022-12-24] MEDS: SODIUM CHLORIDE FLUSH 0.9% 10 ML SYRINGE IVP PRN (01:20)
[2022-12-24] MEDS: MORPHINE 2 MG/ML CARPUJECT IVP PRN (01:20)
[2022-12-24 06:30] LABS: BASOPHILS # (AUTO) 0.1 10^3/uL (0.0-0.1); BASOPHILS % (AUTO) 0.7 %; EOSINOPHILS # (AUTO) 0.2 10^3/uL (0.0-0.7); EOSINOPHILS % (AUTO) 2.6 %; HCT - HEMATOCRIT 30.7 % (37.0-47.0); HGB - HEMOGLOBIN 9.9 g/dL (12.0-16.0); LYMPHOCYTES # (AUTO) 1.7 10^3/uL (1.5-3.5); LYMPHOCYTES % (AUTO) 19.4 %; MEAN CORPUSCULAR HEMOGLOBIN 30.2 pg (27.0-31.0); MEAN CORPUSCULAR HGB CONC 32.2 g/dL (32.0-36.0); MEAN CORPUSCULAR VOLUME 93.6 fL (81.0-99.0); MEAN PLATELET VOLUME 8.4 fL (7.9-10.8); MONOCYTES # (AUTO) 0.6 10^3/uL (0.0-1.0); MONOCYTES % (AUTO) 6.5 %; NEUTROPHILS # (AUTO) 6.2 10^3/uL (1.5-6.6); NEUTROPHILS % (AUTO) 69.5 %; PLT - PLATELET COUNT 689 10^3/uL (130-450); RED BLOOD COUNT 3.28 10^6/uL (4.20-5.40); RED CELL DISTRIBUTION WIDTH 14.1 % (12.0-15.0); WHITE BLOOD COUNT 8.9 x10^3/uL (4.8-10.8)
[2022-12-24 06:36] LABS: CALCIUM 8.7 mg/dL (8.5-10.3); CREATININE 0.6 mg/dL (0.4-1.0); POTASSIUM 3.7 mmol/L (3.5-5.0)
--- NOTE | 2022-12-24 08:03 | Discharge Plan ---
Discharge Plan Problem Reviewed?: Yes Disposition: Home Health Service Condition: Fair Prescriptions: HYDROmorphone [Dilaudid] 2 mg PO Q4H PRN #15 tablet PRN Reason: Pain 5-7 Diet: Regular Activity Restrictions: Activity as Tolerated Shower Restrictions: No Driving Restrictions: Yes (no driving) Assistance Devices: [facility] Concerns: You presented to our emergency room 3 days in a row because of significant hip pain. You had a hip replacement approximately December 14. You had try to get a hold of your orthopedic surgeon but the office never called you back. The hip pain was your main concern, but on the fourth visit to the emergency room you also were identified as having possible bloody stool. You have a history of collagenous colitis and are on Entocort for this. When we evaluated you for your bloody diarrhea, your hemoglobin was 7.4. Normal is 12. We anticipate that you will lose blood with surgery and you did have a hematoma within your hip joint. But 7.4 in the face of somebody who is possibly having bloody stool was something we wanted to watch. The next day, your hemoglobin was 6.9 and now in the range that needed to be transfused. You were transfused 1 unit of blood. Given an iron infusion. And your hemoglobin has come up nicely. After your transfusion you were 8.6. Today you were 9.9. You still are having occasional bloody stool. But you are eating well, working with physical therapy. I feel that you are stable enough to go home now. Hip pain still continues to be problematic for you.With one of your first visits to the ED on December 20, a CT of the hip was done. You had swelling of the muscle and skin on the front side of the hip joint. We think it was hematoma within the muscle. And the prosthetic was in place. Plan of Treatment: 1. Please see your primary care provider in follow-up in the next 1 to 2 weeks. They will need to do a CBC to make sure your hemoglobin continues to rise on its own. 2. Please see orthopedic surgeon in follow-up so he can follow-up the hematoma, and adjust medicines on the basis of your pain. Continue with your weightbearing restrictions as was instructed by him at discharge. You did work with physical therapy here. Your home health physical therapy starts December 27.You are still very dissatisfied with your pain control. You are on Tylenol. I have refilled the Dilaudid for 15 tablets more. 3. Follow-up with your entry engineer. Let them know that you were having bloody stool here. I do not know how much of the stool was responsible for your anemia but you did need to be transfused 1 unit. Continue your Entocort as usual. Care Goals: To complete physical therapy and regain normal ambulation. To be able to have control of your colitis without any further bleeding Assessment: Patient is alert, oriented, lucid. Will be able to follow through on instructions No Smoking: If you smoke, Please STOP! Call for help. Follow-up with: Ian Kaufman MD [Primary Care Provider] -
--- NOTE | 2022-12-24 08:09 | DISCHARGE SUMMARY ---
Discharge Summary Admit Date: 12/21/22 Discharge Date: 12/24/22 Discharging Provider: Elen Humphrey MD Primary Care Provider: Ian Kaufman MD Code Status: Attempt Resuscitation Condition at Discharge: Fair Discharge Disposition: Home Health Service - DIAGNOSES Discharge Diagnoses with Status of Each Condition: 1. Lower GI bleed 2. Collagenous colitis 3. Postoperative pain 4. Anxiety about health 5. Acute blood loss anemia 6. Near syncope 7. Vertigo - HPI History of Present Illness: A 67-year-old female who just recently had an elective hip replacement. This was done approximately December 13. She states that her DVT prophylaxis was an aspirin a day. She does not have any history of peptic ulcer disease. She has no history of diverticular bleeding. However she does have a history of collag enous colitis. She has frequent stools sometimes up to 6 a day. Her symptoms are controlled with Entocort. She use to see Dr. Garcia with [facility] and now sees Ismael Cruz MD. Next scope is due November 2024. She does Entocort once in the morning Monday, and 1 colestipol in the morning and in the evening. She uses loperamide as needed.With her last visit, they do not recommend changing her regimen. In the past she has taken rifaximin and it did not work. She asked about rifaximin again this year and it was explained to her that this is used in small bowel overgrowth, not in this disease.He feels that she will need some form of maintenance therapy for her collagenous colitis as long as she is on a medication such as Zoloft. She has not been seen in the emergency room on December 18, December 20, and today. She normally has high blood pressure For which she takes benazepril in the morning and at night. That was a recent change. As in the last year. Prior to that she had "low blood pressure" of 100/60. Did not need to take medications for very long time. But that changed that she moved would be, got a little bit older. She has a history of intermittent lightheadedness. Especially when her blood pressure used to be low. But the lightheadedness worsened ever since she had a hip replacement. Her surgery was done by Dr. Mccoy, at [facility].She knows that she has a hematoma in the joint. She has such severe lightheadedness on December 18 that she had near syncope at home, but was able to sit down immediately and did not fall. Did not lose consciousness. She feels constantly cold, and her hip is just killing her. When the EMS technicians picked her up at her house with the first ER visit, her pressure was 91 systolic. With 500 cc bolus she went to 101 systolic. She was sent home with stable vitals, and a hemoglobin of 8.3 that day. Her baseline hemoglobin is 14.2. She has been subsequently seen for the same problem on December 19 and today. Hemoglobin was 7.5 that day, and 7.4 today. Today is different in that she had several red, sticky stools. No rectal pain. No abdominal pain. No emesis. She has generalized body aches, but denies fever, chills, urgency, frequency. Today's vital signs show her to have a temperature of 36.6. Heart rate 77. Blood pressure 128/66 as well as 163/117. They were unable to document orthostatic hypotension because "her hip hurts too much". She could not stand. The ER doctor kept on stressing that she looks "worn out and fatigued". White cell count was 8.2, hemoglobin 7.4. Platelets 438. INR is 1.2. Potassium is low at 3.3. Total protein is low at 5.7, albumin low at 2.7. After discussion. I asked him to please document at least a sitting orthostatic blood pressure. I decided to place her under observation status. History - Past Medical History Cardiovascular: reports: Hypertension Respiratory: reports: Emphysema (Centrilobular seen on CT 07/2013, 01/2020), Sleep apnea (Mild sleep apnea but O2 sats do not drop so no benefit of CPAP) Endocrine/Autoimmune: reports: HyPOthyroidism (Autoimmune. Positive thyroid antibody test.) GI: reports: Chronic diarrhea, Other (collagenous colitis, scope 2014. Entocort 3 times weekly. 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 Tried oxybutinin but mouth dry. ), Chronic bladder infection (Resistant E. coli October 2019), Other (Cervical cancer) HEENT: reports: None Psych: reports: Anxiety (Insomnia. As needed hydroxyzine/melatonin. Historically used low-dose alprazolam for resistant symptoms.), Other (History of alcohol abuse, clean and sober) Musculoskeletal: reports: Osteopenia (Takes calcium and vitamin D) Derm: reports: Other (Perioral dermatitis) MRSA Hx?: No - Past Surgical History General: reports: Colonoscopy (2014 and 2019) Ortho: reports: Hip replacement (2016), Knee replacement, Other (Left thumb surgery, 10/2014, ankle surgery 08/2018) HEENT: reports: Tonsil/Adenoidectomy - CONSULTS | PROCEDURES Procedures: Transfusion of 1 unit of packed cells No imaging was done during the stay. However an emergency room visit from December 20 had a lower extremity CT that demonstrated a hematoma in the anterior hip space located within the intramuscular region. Prosthetic in place. - HOSPITAL COURSE Hospital Course: She was felt to have had near syncope from vasovagal, as well as orthostatic hypotension from her pain, and anemia. The anemia was felt to be from both LGI bleed due to colitis as well as acute blood loss anemia from surgery. She was i nitially n.p.o. except for liquids. Then transition to clear liquids and diet was further advanced. This was decided once we realized that her colitis was a flare, and there would be minimal risk of having to go to the OR for a colon resection or colonoscopy. She undergoes surveillance scopes about every 3 years. She tolerated a diet. Was still having occasional blood in her stool at the time of discharge. She required 1 unit of blood transfused for her acute blood loss anemia. Hemoglobin was 6.9 with this. By the time of 1 unit of blood, resuming her diet, and iron infusion, her hemoglobin was 9.9 at discharge. In spite of her hip replacement, the patient has not received any physical therapy in the outpatient setting. She was to start outpatient PT December 27 even though her surgery was December 14. She did work with PT while here. She informs us that she may opt not to go to therapy on December 27 depending on how she feels. Stool culture was ordered. It is in the process of being finalized and will need to be reviewed at her PCP office. Her stool was C. difficile negative. I am asking her to please see her primary care provider in follow-up and make sure that a CBC is done to demonstrate a stable or resolving anemia. I am asking her to see a ice maker in follow-up to see if her collagenous colitis medications need to be changed. And she needs to see her orthopedic surgeon in follow-up.She is discharged home on iron and a multivitamin.While here she was also dizzy and lightheaded. Physical therapy did an Lashawn maneuver that made her feel much better. At discharge temperature is 36.5. Heart rate 97. Blood pressure 125/94. Respirations 16. 98% on room air. She is a slender, alert, middle-aged female who looks younger than her stated age. Supple neck. Lungs are clear to auscultation and percussion without any tachypnea, increased respiratory effort. Abdomen is soft, nontender. Normal bowel sounds. Extremities are without edema. Limited range of motion in the right hip where her surgical site is. Tender in the anterior and lateral compartments. But no heat, redness, drainage. She is alert, oriented to person place and time. Able to follow instructions. In spite of this she just does not feel safe. She wishes that her colitis was not in flare and would like to stay here until it is completely resolved. She has diarrhea on and almost about a regular basis. She says sometimes up to 6 bowel movements a day. The only difference between the diarrhea that she is having now and what she usually does is the blood. Greater than 30 minutes was spent coordinating discharge This document was made in part using voice recognition software. While efforts are made to proofread this document, sound alike and grammatical errors may occur. - ALLERGIES Allergies/Adverse Reactions: Allergies Allergy/AdvReac Type Severity Reaction Status Date / Time hydrochlorothiazide Allergy Anaphylaxis Verified 12/19/22 19:59 - MEDICATIONS Home Medications: Ambulatory Orders Medication Instructions Recorded Confirmed Aspirin EC [Ecotrin] 162 mg PO DAILY 12/22/22 12/22/22 Benazepril HCl [Lotensin] 10 mg PO DAILY 12/22/22 12/22/22 Benazepril HCl [Lotensin] 20 mg PO QPM 12/22/22 12/22/22 Budesonide [Entocort EC] 3 mg PO MOWEFR 12/22/22 12/22/22 Calcium Carbonate/Vitamin D3 2 each PO DAILY 12/22/22 12/22/22 [Calcium 600-Vit D3 200 Tablet] Cholecalciferol (Vitamin D3) 2,000 unit PO DAILY 12/22/22 12/22/22 [Vitamin D3] Colestipol HCl [Colestid] 1 gm PO DAILY 12/22/22 12/22/22 Ferrous Sulfate 325 mg PO DAILY 12/22/22 12/22/22 Levothyroxine [Synthroid] 75 mcg PO QDAC 12/22/22 12/22/22 Multivitamin [Theragran] 1 each PO DAILY 12/22/22 12/22/22 HYDROmorphone [Dilaudid] 2 mg PO Q4H PRN #15 tablet 12/24/22 - LABS Result Diagrams: 12/24/22 06:12 12/24/22 06:12
[2022-12-24 09:13] VITALS: BP 125/50
[2022-12-24] MEDS: oxyCODONE 5 MG TABLET PO PRN (09:36)
== END 2022-12-24 08:50 | disposition home health service (06) | DRG 378 ==
LOC: EDUNIT# → ED 15:32 → INTOOBSV 17:09 → OBSVTOIN 17:09 → MS2 17:09 → UNDOADMOB 17:09 → MS2 12-22 16:09 → OBSVTOIN 12-22 16:09 → UNDODISIN 12-24 08:50
PROVIDERS: ADMIT Specialist; ATTEND Specialist
PROC: 30233N1 Transfusion of Nonautologous Red Blood Cells into Peripheral Vein, Percutaneous Approach (ICD-10-PCS; principal; 2022-12-22)
DX: K92.2 Gastrointestinal hemorrhage, unspecified (principal); R53.1 Weakness; D62 Acute posthemorrhagic anemia; K52.831 Collagenous colitis; G89.18 Other acute postprocedural pain; J43.9 Emphysema, unspecified; F41.8 Other specified anxiety disorders; I95.1 Orthostatic hypotension; R42 Dizziness and giddiness; I10 Essential (primary) hypertension; R55 Syncope and collapse; Z20.822 Contact with and (suspected) exposure to COVID-19; J43.2 Centrilobular emphysema; G47.30 Sleep apnea, unspecified; N32.81 Overactive bladder; E03.9 Hypothyroidism, unspecified; R35.0 Frequency of micturition; R39.15 Urgency of urination; R32 Unspecified urinary incontinence; M96.840 Postprocedural hematoma of a musculoskeletal structure following a musculoskeletal system procedure; Z87.891 Personal history of nicotine dependence
CPT/HCPCS: 36415; 80048; 80053; 81003; 82274; 83690; 85014; 85018; 85025; 85027; 85610; 86850; 86900; 86901; 86920; 87045; 87046; 87427; 87493; 87633; 93005; 96374; 96376; 97112; 97162; 97166; 97535; 99284; 99285; A9270; G0378; P9016; Q0162; 81001; 87086

== ENCOUNTER 2023-02-08 09:46 | Outpatient (CLI) | payer MEDICARE, BC ==
--- NOTE | 2023-02-08 17:09 | CT Report ---
PROCEDURE: Low Dose Lung Cancer Screen INDICATIONS: SMOKER TECHNIQUE: A CT scan of the chest was performed. Intravenous contrast media was not administered. Images were re corded and evaluated at appropriate window settings. Reformats: axial MIP of the chest, coronal and s agittal. For radiation dose reduction, the following was used: automated exposure control, adjustment of mA and/or kV according to patient size. COMPARISON: 02/14/2022 FINDINGS: Image quality: Excellent. Prior cancer history: Unknown Lungs and pleura: No pleural effusions. No pneumothorax. Index lesions are as follows: 1. Right major fissure lymph node is stable. 2. Pleural-based left apical nodule, 09/14, stable. 3. Subpleural right upper lobe nodule, stable. Several other tiny mainly subpleural upper lobe nodules bilaterally are present without significant g rowth. No suspicious new nodule. There is mucus impaction in the right posterior lateral lower lobe a irway, new. There is mucus impaction and several peripheral airways of the anteromedial right middle lobe. No significant bronchial wall thickening or bronchiectasis. Mediastinum: Heart size is normal. No pericardial effusion. No large vessel abnormality. No mediastin al adenopathy by size criteria. No anterior or posterior mediastinal mass. Normal esophagus without hiatal hernia Chest wall and lower neck: Thyroid is unremarkable. No axillary or supraclavicular adenopathy by size . Bones: No suspicious bone lesions. Upper Abdomen: Unremarkable. IMPRESSION: Lung RAD: 2 - Benign. Recommendation: Continue annual screening in 12 Months with LDCT Non-Lung Significant Findings: None. Reviewed by: Ashli Mcgee MD on 02/08/2023 5:08 PM PDT Approved by: Ashli Mcgee MD on 02/08/2023 5:08 PM PDT Station ID: [id number]
== END 2023-02-08 09:47 | disposition home or self-care (01) ==
LOC: DI 09:46
PROVIDERS: ATTEND Family Medicine
DX: Z12.2 Encounter for screening for malignant neoplasm of respiratory organs (principal); R91.8 Other nonspecific abnormal finding of lung field; F17.210 Nicotine dependence, cigarettes, uncomplicated

== ENCOUNTER 2023-07-31 14:12 | Outpatient (CLI) | payer MEDICARE, BC ==
--- NOTE | 2023-07-31 20:37 | DEXA Report ---
PROCEDURE: Dexa Spine and/or Hip INDICATIONS: POST MENOPAUSAL TECHNIQUE: Dual energy x-ray absorptiometry (DXA) was performed on a EPS System. Regions measur ed are the AP Spine, femoral neck, and if needed forearm. Forearm was obtained secondary to bilateral hip arthroplasties. COMPARISON: DEXA 07/30/2021 FINDINGS: Lumbar Spine: Bone Mineral Density: 1.171 g/cm/cm,T score: -0.1, compared to -0.3. Left Forearm: Bone Mineral Density: 0.764 g/cm/cm, T score: -1.3. (T score greater or equal to -1.0: NORMAL) (T score from -1.1 to -2.4: OSTEOPENIA) (T score less than or equal to -2.5 to: OSTEOPOROSIS) Impression: By WHO criteria, this patient has mild osteopenia in the forearm. This was not measured on prior exam . Patients with diagnosis of osteoporosis or osteopenia should have regular bone mineral density assess ment. For those eligible for Medicare, routine testing is allowed once every 2 years. Testing frequ ency can be increased for patients who have rapidly progressing disease or for those who are receivin g medical therapy to restore bone mass. Reviewed by: Magda Ron MD on 07/31/2023 8:35 PM PST Approved by: Magda Ron MD on 07/31/2023 8:35 PM PST Station ID: [id number]
== END 2023-07-31 14:13 | disposition home or self-care (01) ==
LOC: DI 14:12
PROVIDERS: ATTEND Family Medicine
DX: Z78.0 Asymptomatic menopausal state (principal); Z96.643 Presence of artificial hip joint, bilateral; M85.832 Other specified disorders of bone density and structure, left forearm

== ENCOUNTER 2023-08-02 08:00 | Outpatient (CLI) | payer MEDICARE, BC | END 2023-08-02 23:59 | disposition home or self-care (01) | LOC: LAB.N 08:00 | PROVIDERS: ATTEND Physician Assistant Medical | DX: R30.0 Dysuria (principal) | CPT/HCPCS: 87086 ==

== ENCOUNTER 2023-08-05 08:00 | Outpatient (CLI) | payer MEDICARE, BC ==
[2023-08-05 11:03] LABS: BILIRUBIN,URINE NEGATIVE (NEGATIVE); GLUCOSE, URINE (UA) NEGATIVE (NEGATIVE); KETONES,URINE (UA) NEGATIVE (NEGATIVE); LEUKOCYTE ESTERASE, URINE NEGATIVE (NEGATIVE); NITRITE,URINE NEGATIVE (NEGATIVE); OCCULT BLOOD,URINE NEGATIVE (NEGATIVE); PROTEIN,URINE NEGATIVE (NEGATIVE); UROBILINOGEN,URINE 0.2 (NORMAL) E.U./dL (NORMAL)
[2023-08-05 11:22] LABS: BACTERIA,URINE Few /HPF (None Seen); CLARITY,URINE CLEAR (CLEAR); RBC,URINE None Seen /HPF (0-5); SQUAMOUS EPITHELIAL CELL,UR NONE SEEN (<= Few); WBC,URINE 0-3 /HPF (0-5)
== END 2023-08-05 23:59 | disposition home or self-care (01) ==
LOC: LAB.N 08:00
PROVIDERS: ATTEND Emergency Medicine
DX: R32 Unspecified urinary incontinence (principal)
CPT/HCPCS: 81001; 87086

== ENCOUNTER 2023-08-10 14:54 | Outpatient (CLI) | payer MEDICARE, BC ==
[2023-08-10 19:52] LABS: BACTERIAL VAGINOSIS DNA NEGATIVE (NEGATIVE); CANDIDA GLABRATA DNA NEGATIVE (NEGATIVE); CANDIDA GROUP DNA NEGATIVE (NEGATIVE); CANDIDA KRUSEI DNA NEGATIVE (NEGATIVE); TRICHOMONAS VAGINALIS DNA NEGATIVE (NEGATIVE)
== END 2023-08-10 14:55 | disposition home or self-care (01) ==
LOC: LAB 14:54
PROVIDERS: ATTEND Registered Nurse
DX: R10.2 Pelvic and perineal pain (principal); R32 Unspecified urinary incontinence; R30.0 Dysuria
CPT/HCPCS: 81514; 87086

== ENCOUNTER 2024-01-03 10:27 | Outpatient (CLI) | payer MEDICARE, BC ==
--- NOTE | 2024-01-04 10:38 | Mammography Report ---
BILATERAL DIGITAL SCREENING MAMMOGRAM 3D/2D: 01/03/2024 CLINICAL: Routine screening. Comparison is made to exams dated: 12/08/2022 mammogram, 08/18/2021 mammogram, 07/28/2020 mammogram, and 07/31/2019 mammogram - [facility]. Both breasts are heterogeneously dense, which may obscure small masses (category c / 51-75% glandular tissue). There are benign calcifications in both breasts. No significant masses, calcifications, or other findings are seen in either breast. There has been no significant interval change. IMPRESSION: BENIGN There is no mammographic evidence of malignancy. A 1 year screening mammogram is recommended. Based on Tyrer-Cuzick model (a risk assessment model), the patient's lifetime risk is 24.3% and her 1 0 year risk is 14.9%. If a patient has an elevated risk, a more comprehensive evaluation should be co nsidered and/or a referral to a genetic counselor. The [place] [employer], [employer], and NCCN Guidelines advise the consideration of Breast MRI as an adjunct to screening mammo graphy in patients whose "Lifetime risk to develop breast cancer" is 20% or higher. This exam was interpreted at Station ID: [id number]. NOTE: For mammograms, a report in lay terms will be sent to the patient. Approximately 15% of breast malignancies will not be visualized mammographically. In the management of a palpable breast mass, a negative mammogram must not discourage biopsy of a clinically suspicious lesion. Electronically Signed By: Ashli chatterjee/joni:01/03/2024 12:48:22 letter sent: No_Letter ACR BI-RADS Category 2: Benign Finding(s) 3342F PARENCHYMAL PATTERN: (D) - The breast(s) demonstrate(s) heterogeneously dense fibroglandular parenchy ma. BI-RADS CATEGORY: (2) - 2 RECOMMENDATION: (ANNUAL) - Recommend routine annual screening mammography. [id number] 1 year screening LATERALITY: (B)
== END 2024-01-03 10:28 | disposition home or self-care (01) ==
LOC: DI 10:27
DX: Z12.31 Encounter for screening mammogram for malignant neoplasm of breast (principal); R92.333 Mammographic heterogeneous density, bilateral breasts; R92.1 Mammographic calcification found on diagnostic imaging of breast

== ENCOUNTER 2024-01-23 12:34 | Outpatient (CLI) | payer MEDICARE, BC ==
--- NOTE | 2024-01-24 13:49 | CT Report ---
PROCEDURE: Lung Cancer Screen INDICATIONS: SMOKER TECHNIQUE: A CT scan of the chest was performed. Intravenous contrast media was not administered. Images were re corded and evaluated at appropriate window settings. Reformats: axial MIP of the chest, coronal and s agittal. For radiation dose reduction, the following was used: automated exposure control, adjustment of mA and/or kV according to patient size. COMPARISON: 02/08/2023 FINDINGS: Image quality: Excellent. Prior cancer history: Unsure. Lungs and pleura: No pleural effusions. No pneumothorax. Multiple solid pulmonary micronodules are a gain seen, not significantly changed in size. Stable juxtapleural nodules with smooth margins, favor ing benign intrapulmonary lymph nodes. Scattered mucosal secretions. Mediastinum: Heart size is normal. No pericardial effusion. No large vessel abnormality. No mediastin al adenopathy by size criteria. No significant coronary calcifications. Chest wall and lower neck: Thyroid is unremarkable. No axillary or supraclavicular adenopathy by size . Bones: No aggressive osseous abnormality. Upper Abdomen: Unremarkable. IMPRESSION: Lung RAD: 2 - Benign. Recommendation: Continue annual screening in 12 Months with LDCT Non-Lung Significant Findings: None. Reviewed by: Gray Jo MD on 01/24/2024 1:47 PM PDT Approved by: Gray Jo MD on 01/24/2024 1:47 PM PDT Station ID: [id number]
== END 2024-01-23 12:35 | disposition home or self-care (01) ==
LOC: DI 12:34
PROVIDERS: ATTEND Family Medicine
DX: Z12.2 Encounter for screening for malignant neoplasm of respiratory organs (principal); F17.210 Nicotine dependence, cigarettes, uncomplicated; R91.8 Other nonspecific abnormal finding of lung field